=== PATIENT | female | born 1945 | race Caucasian/White ===

== ENCOUNTER 2022-08-28 23:04 | Inpatient (IN) ==
[2022-08-28] MEDS ORDERED: DEXAMETHASONE 10 MG/ML VIAL IV ONE (23:16)
--- NOTE | 2022-08-28 23:18 | Emergency Department Note ---
HPI General Chief complaint: Shortness of Breath/Dyspnea Stated complaint: sob Time Seen by Provider: 08/28/22 23:15 Source: patient Mode of arrival: wheelchair Limitations: physical limitation History of Present Illness HPI Narrative: Narrative: Patient is a 77-year-old female with a complex medical history who presents to the emergency department due to fever, chills, and shortness of breath. Patient states that she was recently diagnosed with COVID. She states that she has begun to develop more significant chills and shortness of breath, so decided to come to the emergency department. She states that she uses a CPAP at night, but does not have oxygen at home. She endorses a history of COPD. She denies any other concerns at this time. Related Data Home Medications Medication Instructions Recorded Confirmed multivitamin 1 tab PO DAILY 06/22/15 08/29/22 fluorouracil 5 % topical cream 1 applic topical BID 04/30/22 08/29/22 Previous Rx's Medication Instructions Recorded CPAP Machine and Supplies #1 ea 10/18/18 rivaroxaban 20 mg tablet (Xarelto) 20 mg PO QDAY #90 tabs 05/04/22 diltiazem HCl 180 mg 180 mg PO QDAY #90 caps 05/14/22 capsule,extended release 24 hr (Cartia XT) losartan 50 mg tablet (Cozaar) 50 mg PO QDAY #90 tabs 06/29/22 pilocarpine HCl 5 mg tablet 5 mg PO TID PRN sjorgens #270 tabs 07/26/22 alendronate 70 mg tablet See Rx Instructions .Route 08/19/22 .COMPLEX #12 tabs dextromethorphan-guaifenesin 10 10 ml PO Q4HP PRN Cough #500 mL 08/31/22 mg-100 mg/5 mL oral liquid (Diabetic Tussin DM) furosemide 40 mg tablet (Lasix) 40 mg PO QDAY #90 tabs 08/31/22 potassium chloride 20 mEq 20 meq PO QDAY #90 tabs 08/31/22 tablet,extended release Allergies Allergy/AdvReac Type Severity Reaction Status Date / Time cephalexin Allergy Unknown Unknown Verified 08/25/22 12:58 doxycycline Allergy Unknown Unknown Verified 08/25/22 12:58 clindamycin AdvReac Mild Itching Verified 08/29/22 08:08 sulfamethoxazole AdvReac Mild Itching Verified 08/29/22 08:08 [From Bactrim] trimethoprim [From Bactrim] AdvReac Mild Itching Verified 08/29/22 08:09 tape Allergy Unknown Unknown Uncoded 08/25/22 12:58 Review of Systems ROS ROS Narrative: Narrative: Constitutional: Reports fever and chills; Denies weakness Eyes: Denies eye pain or vision change ENT ED: Reports rhinorrhea; Denies throat pain or hearing loss Cardiovascular: Denies chest pain, dyspnea on exertion, orthopnea or edema Respiratory: Reports shortness of breath; Denies cough Gastrointestinal: Denies abdominal pain, nausea, vomiting, diarrhea, constipation, hematochezia or melena Musculoskeletal: Denies back pain or myalgia Integumentary: Denies rash or lesions Neurological: Denies headache, weakness, numbness, confusion, abnormal gait or dizziness Psychiatric: Denies anxiety, suicidal thoughts or homicidal thoughts Endocrine: Denies fatigue or polyuria Hematological/Lymphatic: Denies easy bleeding or easy bruising PFSH Narrative Patient History Narrative: Narrative: Medical/Surgical/Family History All Active Problems (Updated 08/29/22 @ 10:03 by Tom Forte MD) AMELIA on CPAP (Acute) Hypoxia (Acute) COVID-19 (Acute) Pneumonia (Acute) COPD (chronic obstructive pulmonary disease) (Chronic) Dysmetabolic syndrome X (Chronic) Hammer toe, acquired (Chronic) Heart disease (Chronic) Hyperlipidemia (Chronic) Hypertension, essential (Chronic) Obesity (Chronic) Obstructive sleep apnea (Chronic) Osteoarthritis (Chronic) Pes planus (Chronic) Sciatica (Chronic) Sleep apnea (Chronic) Hx of colonoscopy (Chronic 12/03/16) Atrial fibrillation (Chronic) Jaw pain (Chronic) Obesities, morbid (Chronic) Atrial fibrillation (Chronic) Foot ulcer, left (Chronic) Nephrolithiasis (Acute) Cyst of spleen (Acute) Shortness of breath (Acute) Morbid obesity due to excess calories (Acute) Abnormal blood test (Acute) Cellulitis of left foot (Acute) Venous stasis (Acute) LUQ abdominal pain (Acute) Headache (Acute) Neck ache (Acute) Left sided chest pain (Acute) Hematuria (Acute) Right facial numbness (Acute) UTI (urinary tract infection) (Acute) Neck pain on right side (Acute) Microscopic hematuria (Acute) Low back pain (Acute) Medicare annual wellness visit, subsequent (Acute) Annual physical exam (Acute) Overactive bladder (Acute) Back muscle spasm (Acute) Xerostomia (Chronic) Abscess (Acute) Elevated antinuclear antibody (SONIDO) level (Acute) Abnormal immunological finding in serum (Chronic) Arthralgia of hand (Acute) Sjogrens syndrome (Chronic) Encounter for long-term (current) use of high-risk medication (Chronic) Tendinitis of both rotator cuffs (Acute) Biceps tendinitis of both upper extremities (Chronic) Left shoulder pain (Chronic) Incontinence (Acute) Angiokeratoma of vulva (Acute) Annual physical exam (Acute) Right sided sciatica (Acute) Laceration of toe (Acute) Medical History Abnormal immunological finding in serum Abscess Allergy to antibiotic 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 Annual physical exam Arthralgia of hand Atrial fibrillation Atrial fibrillation Atypical chest pain Back muscle spasm Biceps tendinitis of both upper extremities Cellulitis of left foot Cervical spondylosis COPD (chronic obstructive pulmonary disease) Cyst of spleen Dysmetabolic syndrome X Elevated antinuclear antibody (SONIDO) level Encounter for long-term (current) use of high-risk medication Foot ulcer, left Hammer toe, acquired 11/15/14-garcia Heart disease 10/28/09-low systolic, low diastolic Hives Hyperlipidemia Hypertension, essential Jaw pain Left shoulder pain Low back pain Medicare annual wellness visit, subsequent Methicillin resistant Staphylococcus epidermidis infection Microscopic hematuria Schedule for CT/KUB along with cystoscopy Neck pain on right side Nephrolithiasis CT KUB Obesities, morbid Obesity morbid Obstructive sleep apnea Osteoarthritis 08/18/04 lower leg Pes planus Pulmonary embolism 01/29/2014 acute multi-segmental, bilateral Right shoulder tendinitis Sciatica Sinusitis Sjogrens syndrome Sleep apnea Tendinitis of both rotator cuffs Thrombophlebitis Upper respiratory infection UTI (urinary tract infection) UTI (urinary tract infection) Xerostomia Surgical History History of 3 sections Hx of colonoscopy (12/03/16) 09/19/2013 tubular adenoma, hyperpalstic polyp S/P knee surgery S/P sclerotherapy of varicose veins S/P shoulder surgery Family History father Essential hypertension mother Essential hypertension Other Kidney stone Social History Smoking Status: Former smoker Alcohol Intake Frequency: does not drink Substance Use: does not use Exam Narrative Narrative: Narrative: General Limitations: physical limitation General appearance: Present alert and in no apparent distress; Absent anxious, appears intoxicated or sleepy Head Head: Present atraumatic and normocephalic Eye Eye: Present EOMI; Absent scleral icterus or nystagmus ENT ENT: Present mucous membranes moist; Absent nasal congestion Neck Neck: Present full ROM; Absent tenderness Chest Chest: Present normal inspection and symmetric chest wall rise Respiratory Respiratory: Present wheezes; Absent respiratory distress, rales/crackles, stridor or accessory muscle use Cardiovascular Cardiovascular: Present regular rate, normal rhythm and normal heart sounds Adbominal Abdominal: Present soft and normal bowel sounds; Absent distention or tenderness Extremities Extremities: Present normal inspection and full ROM Back Back: Present normal inspection and full ROM Neurological Neurological: Present alert and oriented X3 Psychiatric Psychiatric: Present normal affect and normal mood Skin Skin: Present warm (WNL), dry and normal color Course Vital Signs Vital signs: Vital Signs Temperature 100.3 F H 08/28/22 23:08 Pulse Rate 91 H 08/28/22 23:08 Respiratory Rate 28 H 08/28/22 23:08 Blood Pressure 127/110 08/28/22 23:08 Pulse Oximetry (%) 86 L 08/28/22 23:08 Oxygen Delivery Method 08/28/22 23:08 Temperature 97.7 F 08/31/22 15:57 Pulse Rate 61 08/31/22 15:57 Respiratory Rate 22 08/31/22 15:57 Blood Pressure 152/70 08/31/22 15:57 Pulse Oximetry (%) 93 08/31/22 15:57 Oxygen Delivery Method 08/31/22 15:57 Oxygen Flow Rate (L/min) 2 08/31/22 03:36 MDM MDM Narrative Medical decision making narrative: Narrative: Patient is a 77-year-old female with a complex medical history who presents to the emergency department due to fever, chills, and shortness of breath. Given recent diagnosis of Covid there is concern for hypoxia secondary to covid 19. With wheezes and history of COPD there is concern for COPD exacerbation. Bacterial pneumonia is also possible. Patient has received duoneb x 2 with improvement in symptoms. Patient initially had improvement in O2 saturations. Patient then had desaturation with transfer out of/into bed. She then had more sustained hypoxia. There are not any available rooms at this time, but there will be in a couple of hours at 6 am. The hospitalist is being made aware of patient and desired admission. Patient has been signed out to Dr. Oconnell as I was not able to speak to hospitalist by the end of my shift. Lab Data Result diagrams: 08/31/22 05:10 08/31/22 05:10 Labs: Lab Results 08/28/22 08/29/22 08/29/22 Range/Units 23:36 00:45 08:25 WBC 16.4 H (4.5-11.0) K/mcL RBC 4.23 (3.59-5.38) M/mcL Hgb 12.0 (11.2-15.7) g/dL Hct 38.6 (34.1-44.9) % POC Hct 35.0 L (36-48) MCV 91.3 (80.0-100.0) fL MCH 28.4 (26.0-34.0) pg MCHC 31.1 (31.0-36.0) g/dL RDW 14.4 (11.5-14.5) % Plt Count 211 (140-440) K/mcL MPV 9.8 (8.8-12.5) fL Immature Gran % (Auto) 0.8 H (0.0-0.5) % Neut % (Auto) 89.4 H (38.0-78.0) % Lymph % (Auto) 5.8 L (15.5-49.0) % Antelope % (Auto) 2.6 (1.0-12.0) % Eos % (Auto) 1.2 (0.0-7.0) % Baso % (Auto) 0.2 (0.0-2.0) % Lymph # (Auto) 0.95 L (1.50-4.80) K/mcL Antelope # (Auto) 0.43 (0.10-0.90) K/mcL Eos # (Auto) 0.20 (0.00-0.70) K/mcL Baso # (Auto) 0.04 (0.00-0.30) K/mcL Immature Gran # 0.13 H (0.00-0.05) K/mcl Absolute Neutrophils 14.68 H (1.80-8.00) K/mcL POC Sodium 138 (133-145) POC Potassium 4.3 (3.3-5.1) POC Chloride 103 (96-108) POC Total CO2 24.0 (22-30) POC BUN 20 (6-20) POC Creatinine 0.9 (0.6-1.2) POC Glucose 134 H (70-105) POC WB Ioniz Calcium 1.13 L (1.16-1.32) Urine Color Lt. yellow Urine Appearance Clear (Clear) Urine pH 6.0 (5.0-9.0) Ur Specific Amberson 1.015 (1.000-1.035) Urine Protein Negative (Negative) mg/dL Urine Glucose (UA) Negative (Negative) mg/dL Urine Ketones Negative (Negative) mg/dL Urine Occult Blood Trace-intact A (Negative) scott/mcL Urine Nitrate Negative (Negative) Urine Bilirubin Negative (Negative) mg/dL Urine Urobilinogen Normal mg/dL Ur Leukocyte Esterase Negative (Negative) /uL Urine RBC 7 H (0-3) /hpf Urine WBC 1 (0-4) /hpf Ur Squamous Epith Cells 2 (0-4) /hpf Ur Transition Epith Cell < 1 (0-2) /hpf Urine Bacteria Few A (0) /hpf Urine Mucus Few A (None) /hpf Ur Culture Indicated? Yes ED POC Tests ED POC Tests: SILVINO - Influenza A Negative SILVINO - Influenza B Negative SILVINO - SARS Antigen Positive Discharge Plan Patient/Caregiver Discharge Instructions Pt seen by WATERSHED COORDINATOR/PA only: No Clinical Impression: COPD (chronic obstructive pulmonary disease), Hypoxia, COVID-19, Pneumonia Activity: increase activity as tolerated Patient Disposition: Still a Patient Condition: Fair Discharge Date/Time: 08/29/22 10:30
[2022-08-28] MEDS ORDERED: IPRATROPIUM/ALBUTEROL 3 ML AMPUL.NEB NEB ONE (23:43)
[2022-08-29 00:19] LABS: Basophils # (Auto) 0.04 K/mcL (0.00-0.30); Basophils % (Auto) 0.2 % (0.0-2.0); Eosinophils % (Auto) 1.2 % (0.0-7.0); Hematocrit 38.6 % (34.1-44.9); Lymphocytes # (Auto) 0.95 K/mcL (1.50-4.80); Lymphocytes % (Auto) 5.8 % (15.5-49.0); Mean Cell Volume 91.3 fL (80.0-100.0); Mean Corpuscular HGB Conc 31.1 g/dL (31.0-36.0); Mean Platelet Volume 9.8 fL (8.8-12.5); Monocytes # (Auto) 0.43 K/mcL (0.10-0.90); Monocytes % (Auto) 2.6 % (1.0-12.0); Neutrophils % (Auto) 89.4 % (38.0-78.0); Platelet Count 211 K/mcL (140-440); RBC 4.23 M/mcL (3.59-5.38); Red Cell Distribution Width 14.4 % (11.5-14.5); WBC 16.4 K/mcL (4.5-11.0)
[2022-08-29 00:48] LABS: POC Calcium, Ionized 1.13 (1.16-1.32); POC Creatinine 0.9 (0.6-1.2); POC Potassium 4.3 (3.3-5.1)
[2022-08-29] MEDS ORDERED: ACETAMINOPHEN 500 MG TABLET PO ONE (00:48)
[2022-08-29] MEDS ORDERED: predniSONE 20 MG TABLET PO ONE (00:54)
[2022-08-29] MEDS ORDERED: IPRATROPIUM/ALBUTEROL 3 ML AMPUL.NEB NEB ONE (00:54)
[2022-08-29] MEDS ORDERED: BEBTELOVIMAB 175 MG/2 ML VIAL IV ONE (08:03)
--- NOTE | 2022-08-29 08:19 | Emergency Department Note ---
Course Course Course Narrative: Took over care from Dr. Barrett. Patient has exacertion of COPD and Covid positive. She on O2 2 l. She desaturates upon stoppin O2. Patient is awaiting admission, hospitalist to call back Dr. Barrett Note "Patient is a 77-year-old female with a complex medical history who presents to the emergency department due to fever, chills, and shortness of breath. Patient states that she was recently diagnosed with COVID. She states that she has begun to develop more significant chills and shortness of breath, so decided to come to the emergency department. She states that she uses a CPAP at night, but does not have oxygen at home. She endorses a history of COPD. She denies any other concerns at this time" Her WBC high 16.4 with left shift, CXR c/w bilateral infiltrates, no consolidation. UA ordered. Discussed antiviral with patient who agrees. Remdesivir to be given on Floor after admission Case discussed with hospitalist Dr. Forte who will come and see the patient for a dmission. Vital Signs Vital signs: Vital Signs Temperature 100.3 F H 08/28/22 23:08 Pulse Rate 91 H 08/28/22 23:08 Respiratory Rate 28 H 08/28/22 23:08 Blood Pressure 127/110 08/28/22 23:08 Pulse Oximetry (%) 86 L 08/28/22 23:08 Oxygen Delivery Method 08/28/22 23:08 Temperature 98.7 F 08/29/22 02:25 Pulse Rate 80 08/29/22 08:40 Respiratory Rate 16 08/29/22 08:40 Blood Pressure 152/48 08/29/22 08:40 Pulse Oximetry (%) 98 08/29/22 08:40 Oxygen Delivery Method 08/29/22 04:16 Oxygen Flow Rate (L/min) 2 08/29/22 04:16 MDM MDM Narrative Medical decision making narrative: Narrative: Lab Data Result diagrams: 08/28/22 23:36 Labs: Lab Results 08/28/22 08/29/22 Range/Units 23:36 00:45 WBC 16.4 H (4.5-11.0) K/mcL RBC 4.23 (3.59-5.38) M/mcL Hgb 12.0 (11.2-15.7) g/dL Hct 38.6 (34.1-44.9) % POC Hct 35.0 L (36-48) MCV 91.3 (80.0-100.0) fL MCH 28.4 (26.0-34.0) pg MCHC 31.1 (31.0-36.0) g/dL RDW 14.4 (11.5-14.5) % Plt Count 211 (140-440) K/mcL MPV 9.8 (8.8-12.5) fL Immature Gran % (Auto) 0.8 H (0.0-0.5) % Neut % (Auto) 89.4 H (38.0-78.0) % Lymph % (Auto) 5.8 L (15.5-49.0) % Blaine % (Auto) 2.6 (1.0-12.0) % Eos % (Auto) 1.2 (0.0-7.0) % Baso % (Auto) 0.2 (0.0-2.0) % Lymph # (Auto) 0.95 L (1.50-4.80) K/mcL Blaine # (Auto) 0.43 (0.10-0.90) K/mcL Eos # (Auto) 0.20 (0.00-0.70) K/mcL Baso # (Auto) 0.04 (0.00-0.30) K/mcL Immature Gran # 0.13 H (0.00-0.05) K/mcl Absolute Neutrophils 14.68 H (1.80-8.00) K/mcL POC Sodium 138 (133-145) POC Potassium 4.3 (3.3-5.1) POC Chloride 103 (96-108) POC Total CO2 24.0 (22-30) POC BUN 20 (6-20) POC Creatinine 0.9 (0.6-1.2) POC Glucose 134 H (70-105) POC WB Ioniz Calcium 1.13 L (1.16-1.32) ED POC Tests ED POC Tests: SILVINO - Influenza A Negative SILVINO - Influenza B Negative SILVINO - SARS Antigen Positive Discharge Plan Patient/Caregiver Discharge Instructions Pt seen by DRY CLEANING MACHINE OPERATOR/PA only: No Clinical Impression: COPD (chronic obstructive pulmonary disease), Hypoxia, COVID-19, Pneumonia Patient Disposition: Xfer As Inpt ([facility]) Condition: Fair Follow up with: Gopal Michael MD [Primary Care Provider] - Prescriptions: No Action furosemide [Lasix] 40 mg tablet 40 mg PO QDAY Qty: 90 1RF potassium chloride 20 mEq tablet extended release 20 meq PO QDAY Qty: 90 1RF Xarelto 20 mg tablet 20 mg PO QDAY Qty: 90 1RF Rx Instructions: must administer with evening meal diltiazem HCl [Cartia XT] 180 mg capsule,extended release 24hr 180 mg PO QDAY Qty: 90 1RF losartan [Cozaar] 50 mg tablet 50 mg PO QDAY Qty: 90 1RF pilocarpine HCl 5 mg tablet 5 mg PO TID PRN (Reason: sjorgens) Qty: 270 0RF alendronate 70 mg tablet See Rx Instructions .ROUTE .COMPLEX Qty: 12 0RF Dose Instruction: TAKE 1 TABLET BY MOUTH EVERY WEEK Rx Instructions: TAKE 1 TABLET BY MOUTH EVERY WEEK (DME) CPAP Machine and Supplies Qty: 1 0RF Dose Instruction: As directed Rx Instructions: As directed fluorouracil 5 % cream 1 applic topical BID Rx Instructions: Per Dr. Arreola, starting in July 2022 multivitamin 1 EACH tablet 1 tab PO DAILY
--- NOTE | 2022-08-29 08:36 | XRay Report ---
HISTORY: Shortness breath, hypoxia, Covid FINDINGS: Portable semierect AP image was obtained. There is a haziness in the lower thorax bilaterally. This is predominantly due to superimposed fat from abdominal wall fat. Underlying mild pneumonia in the lung bases cannot be excluded. The mid and upper lung pérez are clear. The heart size is normal. No pleural effusion is present. IMPRESSION: Suboptimal exam with possible mild pneumonia in the lung bases Interpreted and Authenticated by: Lorenzo Petersen 08/29/22
[2022-08-29 09:23] LABS: Appearance,Urine CLEAR (Clear); Bacteria,Urine FEW /hpf (0); Bilirubin,Urine NEGATIVE (Negative); Color,Urine LT. YELLOW; Culture Indicated,Urine Yes; Glucose,Urine (UA) NEGATIVE (Negative); Ketones,Urine NEGATIVE (Negative); Leukocyte Esterase,Urine NEGATIVE /uL (Negative); Mucus,Urine FEW /hpf; Nitrate,Urine NEGATIVE (Negative); Protein,Urine NEGATIVE (Negative); Specific Gravity,Urine 1.015 (1.000-1.035); Urine Blood TRACE-INTACT ery/mcL (Negative); Urine RBC 7 /hpf (0-3); Urine Squamous Epithelial Cell 2 /hpf (0-4); Urine Transitional Epi Cells < 1 /hpf (0-2); Urine WBC 1 /hpf (0-4); Urobilinogen,Urine Normal
--- NOTE | 2022-08-29 10:06 | Internal Med History&Physical ---
HPI History of Present Illness Patient information: Note initiated : 08/29/22 at 9:49 am Service Date, if different from initiated Date: [] Patient: Miriam Yanez 77 y/o F admitted on for sob. Chief Complaint: [shortness of breath] Chief complaint: shortness of breath History of present illness: Ms. Yanez is a 77 year old F history of sleep apnea on CPAP, obesity, essential hypertensions, atrial fibrillation's on Xarelto, Sjogren's syndrome, presenting with 1 week history of shortness of breath, productive cough, wheezing, and shaking chills. She denies any recent travel or sick contact. She has been vaccinated against COVID-pneumonia x3. Over the past week, she is experiencing shortness of breath, productive cough, wheezing, and shaking chills. She was tested positive for COVID-pneumonia 4 days ago. She presented to our ED last night due to worsening of her symptoms. Vital signs significant for oxygen desaturating to the high 80s on room air. Labs significant for leukocytosis with WBC 16.4. Chest x-ray showing bilateral lung base infiltrate suggestive of pneumonia. Admission request was called for COVID-pneumonia cannot rule out superimposing bacterial pneumonia. Constitutional Constitutional: Present chills; Absent excessive sweating, fatigue, fever(s) or weakness EENT Eyes: Absent blurry vision, change in vision, loss of vision or other visual disturbances Ears: Absent decreased hearing or tinnitus Nose, mouth and throat: Absent abnormal hearing, dry mouth, headache(s), nasal congestion or sore throat Cardiovascular Cardiovascular: Absent chest pain, chest pain at rest, edema, irregular heart rhythm or palpatations Respiratory Respiratory: Present cough, dyspnea, wheezing and excessive phlegm production Gastrointestinal Gastrointestinal: Absent abdominal pain, constipation, diarrhea, nausea or vomiting Musculoskeletal Musculoskeletal: Absent back pain, deformity, limited range of motion, muscle cramps, muscle weakness or numbness Integumentary Integumentary: Absent lesions, rash or wounds Neurological Neurological: Absent focal weakness, headache(s) or numbness Psychiatric Psychiatric: Absent anxiety, depression or hallucinations PFSH PFSH All Active Problems (Updated 08/29/22 @ 10:03 by Tom Forte MD) AMELIA on CPAP (Acute) Hypoxia (Acute) COVID-19 (Acute) Pneumonia (Acute) COPD (chronic obstructive pulmonary disease) (Chronic) Dysmetabolic syndrome X (Chronic) Hammer toe, acquired (Chronic) Heart disease (Chronic) Hyperlipidemia (Chronic) Hypertension, essential (Chronic) Obesity (Chronic) Obstructive sleep apnea (Chronic) Osteoarthritis (Chronic) Pes planus (Chronic) Sciatica (Chronic) Sleep apnea (Chronic) Hx of colonoscopy (Chronic 12/03/16) Atrial fibrillation (Chronic) Jaw pain (Chronic) Obesities, morbid (Chronic) Atrial fibrillation (Chronic) Foot ulcer, left (Chronic) Nephrolithiasis (Acute) Cyst of spleen (Acute) Shortness of breath (Acute) Morbid obesity due to excess calories (Acute) Abnormal blood test (Acute) Cellulitis of left foot (Acute) Venous stasis (Acute) LUQ abdominal pain (Acute) Headache (Acute) Neck ache (Acute) Left sided chest pain (Acute) Hematuria (Acute) Right facial numbness (Acute) UTI (urinary tract infection) (Acute) Neck pain on right side (Acute) Microscopic hematuria (Acute) Low back pain (Acute) Medicare annual wellness visit, subsequent (Acute) Annual physical exam (Acute) Overactive bladder (Acute) Back muscle spasm (Acute) Xerostomia (Chronic) Abscess (Acute) Elevated antinuclear antibody (SONIDO) level (Acute) Abnormal immunological finding in serum (Chronic) Arthralgia of hand (Acute) Sjogrens syndrome (Chronic) Encounter for long-term (current) use of high-risk medication (Chronic) Tendinitis of both rotator cuffs (Acute) Biceps tendinitis of both upper extremities (Chronic) Left shoulder pain (Chronic) Incontinence (Acute) Angiokeratoma of vulva (Acute) Annual physical exam (Acute) Right sided sciatica (Acute) Laceration of toe (Acute) Medical History Abnormal immunological finding in serum Abscess Allergy to antibiotic 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 Annual physical exam Arthralgia of hand Atrial fibrillation Atrial fibrillation Atypical chest pain Back muscle spasm Biceps tendinitis of both upper extremities Cellulitis of left foot Cervical spondylosis COPD (chronic obstructive pulmonary disease) Cyst of spleen Dysmetabolic syndrome X Elevated antinuclear antibody (SONIDO) level Encounter for long-term (current) use of high-risk medication Foot ulcer, left Hammer toe, acquired 11/15/14-garcia Heart disease 10/28/09-low systolic, low diastolic Hives Hyperlipidemia Hypertension, essential Jaw pain Left shoulder pain Low back pain Medicare annual wellness visit, subsequent Methicillin resistant Staphylococcus epidermidis infection Microscopic hematuria Schedule for CT/KUB along with cystoscopy Neck pain on right side Nephrolithiasis CT KUB Obesities, morbid Obesity morbid Obstructive sleep apnea Osteoarthritis 08/18/04 lower leg Pes planus Pulmonary embolism 01/29/2014 acute multi-segmental, bilateral Right shoulder tendinitis Sciatica Sinusitis Sjogrens syndrome Sleep apnea Tendinitis of both rotator cuffs Thrombophlebitis Upper respiratory infection UTI (urinary tract infection) UTI (urinary tract infection) Xerostomia Surgical History History of 3 sections Hx of colonoscopy (12/03/16) 09/19/2013 tubular adenoma, hyperpalstic polyp S/P knee surgery S/P sclerotherapy of varicose veins S/P shoulder surgery Family History father Essential hypertension mother Essential hypertension Other Kidney stone Social History household members: alone lives independently: Yes marital status: occupational status: retired occupation: [employer] smoking status: Former smoker smoking status stop date: 10/03/05 alcohol intake frequency: does not drink substance use type: does not use MEDS/ALLERGIES Home Medications and Allergies Home Medications Medication Instructions Recorded Confirmed Type multivitamin 1 tab PO DAILY 06/22/15 08/29/22 History CPAP Machine and Supplies #1 ea 10/18/18 08/25/22 Rx furosemide 40 mg tablet (Lasix) 40 mg PO QDAY #90 tabs 03/04/22 08/29/22 Rx potassium chloride 20 mEq 20 meq PO QDAY #90 tabs 03/04/22 08/29/22 Rx tablet,extended release fluorouracil 5 % topical cream 1 applic topical BID 04/30/22 08/29/22 History rivaroxaban 20 mg tablet (Xarelto) 20 mg PO QDAY #90 tabs 05/04/22 08/29/22 Rx diltiazem HCl 180 mg 180 mg PO QDAY #90 caps 05/14/22 08/29/22 Rx capsule,extended release 24 hr (Cartia XT) losartan 50 mg tablet (Cozaar) 50 mg PO QDAY #90 tabs 06/29/22 08/29/22 Rx pilocarpine HCl 5 mg tablet 5 mg PO TID PRN sjorgens #270 tabs 07/26/22 08/29/22 Rx alendronate 70 mg tablet See Rx Instructions .Route 08/19/22 08/29/22 Rx .COMPLEX #12 tabs Allergies Allergy/AdvReac Type Severity Reaction Status Date / Time cephalexin Allergy Unknown Unknown Verified 08/25/22 12:58 doxycycline Allergy Unknown Unknown Verified 08/25/22 12:58 clindamycin AdvReac Mild Itching Verified 08/29/22 08:08 sulfamethoxazole AdvReac Mild Itching Verified 08/29/22 08:08 [From Bactrim] trimethoprim [From Bactrim] AdvReac Mild Itching Verified 08/29/22 08:09 tape Allergy Unknown Unknown Uncoded 08/25/22 12:58 EXAM Constitutional Vitals: Temp Pulse Resp BP Pulse Ox O2 Del Method O2 Flow Rate 37.1 C 74 17 129/53 96 2 08/29/22 02:25 08/29/22 09:17 08/29/22 09:17 08/29/22 09:17 08/29/22 09:17 08/29/22 04:16 08/29/22 04:16 General appearance: cooperative, morbidly obese and no acute distress Head Head exam: Present atraumatic and normocephalic Eye Eye exam: Present EOMI and PERRL ENT ENT exam: Present mucous membranes moist, normal exam and normal external ear exam Additional comments: Nasal cannula in place Neck Neck exam: Present normal inspection; Absent lymphadenopathy, tenderness or thyromegaly Respiratory Respiratory exam: Present rhonchi; Absent accessory muscle use, respiratory distress or wheezes Cardiovascular Cardiovascular exam: Present irregular rhythm; Absent JVD GI/Abdominal GI/Abdominal exam: Present normal bowel sounds and soft; Absent organomegaly or tenderness Extremities Exam Extremities exam: Present full ROM, normal capillary refill and normal inspection; Absent tenderness Neurological Exam Neurological exam: Present alert, CN II-XII intact and oriented X3; Absent motor sensory deficit Psychiatric Psychiatric exam: Present normal affect and normal mood; Absent anxious or depressed Skin Skin exam: Present dry and intact DATA Data Completed and Pending Labs: Labs from last 24 hours 08/29/22 08/29/22 08/28/22 08:25 00:45 23:36 WBC 16.4 H RBC 4.23 Hgb 12.0 Hct 38.6 POC Hct 35.0 L MCV 91.3 MCH 28.4 MCHC 31.1 RDW 14.4 Plt Count 211 MPV 9.8 Immature Gran % (Auto) 0.8 H Neut % (Auto) 89.4 H Lymph % (Auto) 5.8 L Ida % (Auto) 2.6 Eos % (Auto) 1.2 Baso % (Auto) 0.2 Lymph # (Auto) 0.95 L Ida # (Auto) 0.43 Eos # (Auto) 0.20 Baso # (Auto) 0.04 Immature Gran # 0.13 H Absolute Neutrophils 14.68 H POC Sodium 138 POC Potassium 4.3 POC Chloride 103 POC Total CO2 24.0 POC BUN 20 POC Creatinine 0.9 POC Glucose 134 H POC WB Ioniz Calcium 1.13 L Urine Color Lt. yellow Urine Appearance Clear Urine pH 6.0 Ur Specific Oscar 1.015 Urine Protein Negative Urine Glucose (UA) Negative Urine Ketones Negative Urine Occult Blood Trace-intact A Urine Nitrate Negative Urine Bilirubin Negative Urine Urobilinogen Normal Ur Leukocyte Esterase Negative Urine RBC 7 H Urine WBC 1 Ur Squamous Epith Cells 2 Ur Transition Epith Cell < 1 Urine Bacteria Few A Urine Mucus Few A Ur Culture Indicated? Yes A/P Assessment and plan (1) COVID-19: Status: Acute (2) Pneumonia: Status: Acute (3) Hypertension, essential: Status: Chronic (4) Obesity: Status: Chronic Comment: morbid Qualifiers: Obesity type: due to excess calories Obesity classification: adult class 3 (BMI >= 40) Serious obesity comorbidity presence: with serious comorbidity Body mass index: BMI 50.0-59.9 Qualified Code(s): E66.01 - Morbid (severe) obesity due to excess calories (5) Atrial fibrillation: Status: Chronic Qualifiers: Atrial fibrillation type: paroxysmal Qualified Code(s): I48.0 - Paroxysmal atrial fibrillation (6) Sjogrens syndrome: Status: Chronic (7) AMELIA on CPAP: Status: Acute Narrative A/P Narrative: Assessment and Plans: 1. CoVID pneumonia: Inpatient med surg with telemetry Isolation: airborne and contact Supplemental oxygen therapy Dexamethasone Remdesivir DuoNEB NEB PRN wheezing Tylenol PRN fever Robitussin DM PRN cough Physical therapy 2. Superimposed community acquired pneumonia: Serial lactic acid Blood culture X2 cbc w/ auto diff in the morning to trend WBC Rocephin Zithromax 3. Obstructive sleep apnea on CPAP: Continue CPAP at night while sleeping 4. Atrial fibrillation: Telemetry Xarelto Diltiazem 5. Essential hypertension: Diltiazem Lasix Losartan 6. 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 Sjgren's syndrome: Pilocarpine PRN dry mouth GI ppx: not currently indicated DVT ppx: Xarelto Code status: Full Prognosis: guarded Disposition: inpatient med surg telemetry; PT Time Spent With Patient Time: Total time spent is greater than 50% in coordination of care (as documented) at patient's floor/unit and/or counseling patient: Total time spent with greater than 50% in coordination of care (as documented) at patient's floor/unit and/or counseling patient:: 50 - 70 minutes
[2022-08-29] MEDS ORDERED: ONDANSETRON 4 MG/2 ML VIAL IV PRN (10:47)
[2022-08-29] MEDS ORDERED: guaiFENesin/DEXTROMETHORPHAN ORAL SOL PO PRN (10:47)
[2022-08-29] MEDS ORDERED: traZODone HCL 50 MG TABLET PO PRN (10:47)
[2022-08-29] MEDS ORDERED: IPRATROPIUM/ALBUTEROL 3 ML AMPUL.NEB NEB PRN (10:47)
[2022-08-29] MEDS ORDERED: cefTRIAXone 1 GM in DEXTROSE 5% IN WATER 50 ML IV SCH (10:47)
[2022-08-29] MEDS ORDERED: ACETAMINOPHEN 325 MG TABLET PO PRN (10:47)
[2022-08-29] MEDS ORDERED: Pilocarpine Hcl 5 mg tablet PO PRN (10:49)
[2022-08-29] MEDS ORDERED: REMDESIVIR 200 MG in 0.9 % SODIUM CHLORIDE 250 ML IV ONE (11:00)
[2022-08-29] MEDS: DEXAMETHASONE 4 MG TABLET PO SCH (11:25)
[2022-08-29] MEDS: cefTRIAXone 1 GM VIAL IV SCH (12:05)
[2022-08-29] MEDS: AZITHROMYCIN 500 MG in DEXTROSE 5% IN WATER 250 ML IV SCH (12:51)
[2022-08-29] MEDS: 0.9 % SODIUM CHLORIDE 10 ML SYRINGE IV SCH ×2 (13:00→20:39)
[2022-08-29] MEDS: DOCUSATE SODIUM 100 MG CAPSULE PO SCH (20:39)
[2022-08-29] MEDS: SENNOSIDES 1 TABLET PO SCH (20:40)
[2022-08-29] MEDS: FLUOROURACIL 5% TOPICAL SCH (20:40)
[2022-08-30] MEDS: 0.9 % SODIUM CHLORIDE 10 ML SYRINGE IV SCH ×3 (05:32→20:29)
[2022-08-30 07:05] LABS: Basophils # (Auto) 0.08 K/mcL (0.00-0.30); Basophils % (Auto) 0.3 % (0.0-2.0); Eosinophils # (Auto) 0 K/mcL (0.00-0.70); Eosinophils % (Auto) 0 % (0.0-7.0); Hematocrit 35.4 % (34.1-44.9); Hemoglobin 11.2 g/dL (11.2-15.7); Lymphocytes # (Auto) 0.87 K/mcL (1.50-4.80); Lymphocytes % (Auto) 3.6 % (15.5-49.0); Mean Cell Volume 90.5 fL (80.0-100.0); Mean Corpuscular HGB Conc 31.6 g/dL (31.0-36.0); Mean Platelet Volume 10.1 fL (8.8-12.5); Monocytes # (Auto) 0.78 K/mcL (0.10-0.90); Monocytes % (Auto) 3.2 % (1.0-12.0); Neutrophils % (Auto) 91.8 % (38.0-78.0); Platelet Count 178 K/mcL (140-440); RBC 3.91 M/mcL (3.59-5.38); Red Cell Distribution Width 14.3 % (11.5-14.5); WBC 24.3 K/mcL (4.5-11.0)
[2022-08-30 07:22] LABS: ALT/SGPT 24 U/L (<40); AST/SGOT 31 U/L (<32); Albumin 3.1 gm/dL (3.2-5.2); Albumin/Globulin Ratio 0.9 (1.0-2.3); Alkaline Phosphatase 81 U/L (39-117); Bilirubin,Total 0.2 mg/dL (0.1-1.0); Blood Urea Nitrogen 17 mg/dL (8-23); Calcium 8.6 mg/dL (8.6-10.4); Carbon Dioxide 27 mmol/L (22-30); Chloride 105 mmol/L (96-108); Globulin 3.3 gm/dL (2.2-3.7); Glomerular Filtration Rate 87; Glucose 126 mg/dL (70-105)
[2022-08-30] MEDS ORDERED: ALENDRONATE SODIUM 70 MG TABLET PO SCH (07:30)
[2022-08-30] MEDS: RIVAROXABAN 20 MG TABLET PO SCH (09:26)
[2022-08-30] MEDS: FUROSEMIDE 40 MG TABLET PO SCH (09:26)
[2022-08-30] MEDS: DEXAMETHASONE 4 MG TABLET PO SCH (09:26)
[2022-08-30] MEDS: DOCUSATE SODIUM 100 MG CAPSULE PO SCH ×2 (09:26→20:28)
[2022-08-30] MEDS: MULTIVIT,THER IRON,CA,FA & MIN 1 TABLET PO SCH (09:26)
[2022-08-30] MEDS: cefTRIAXone 1 GM VIAL IV SCH (09:27)
[2022-08-30] MEDS: AZITHROMYCIN 500 MG in DEXTROSE 5% IN WATER 250 ML IV SCH (09:27)
[2022-08-30] MEDS: POTASSIUM CHLORIDE 20 MEQ TABLET PO SCH (09:27)
[2022-08-30] MEDS: LOSARTAN 50 MG TABLET PO SCH (09:27)
[2022-08-30] MEDS: DILTIAZEM 180 MG CAP.XL.24H PO SCH (09:38)
--- NOTE | 2022-08-30 12:03 | Internal Med Progress Note ---
SUBJECTIVE Subjective Patient information: Note initiated : 08/30/22 at 12:00 pm Service Date, if different from initiated Date: [] Patient: Miriam Yanez 77 y/o F admitted on 08/29/22 for sob. Chief Complaint: [] Interval history: Ms. Yanez is a 77 year old F history of sleep apnea on CPAP, obesity, essential hypertensions, atrial fibrillation's on Xarelto, Sjogren's syndrome, presenting with 1 week history of shortness of breath, productive cough, wheezing, and shaking chills. She denies any recent travel or sick contact. She has been vaccinated against COVID-pneumonia x3. Over the past week, she is experiencing shortness of breath, productive cough, wheezing, and shaking chills. She was tested positive for COVID-pneumonia 4 days ago. She presented to our ED last night due to worsening of her symptoms. Vital signs significant for oxygen desaturating to the high 80s on room air. Labs significant for leukocytosis with WBC 16.4. Chest x-ray showing bilateral lung base infiltrate suggestive of pneumonia. Admission request was called for COVID-pneumonia cannot rule out superimposing bacterial pneumonia. 08/30: Afebrile overnight. Blood and urine culture no growth today. Patient is currently on 2 L/min of supplemental oxygen via nasal cannula. She feels like her degree of shortness of breath has improved. She is still complaining of productive cough with yellow sputum. She denies any wheezing. She denies any chest pain chest pressure or chest tightness. She is having fever but denies any shaking chills or diaphoresis. Continue Remdesivir and dexamethasone for COVID-pneumonia. Continue Rocephin an d azithromycin for coverage of superimposing bacterial pneumonia. Continue supplemental oxygen therapy. Physical therapy evaluation and treatment for placement planning. Constitutional Vitals: Vital Signs Temp Pulse Resp BP Pulse Ox O2 Del Method O2 Flow Rate 36.4 C 72 18 154/73 97 2 08/30/22 03:59 08/30/22 07:59 08/30/22 07:59 08/30/22 07:59 08/30/22 07:59 08/30/22 07:59 08/30/22 07:59 Period Temp Pulse Resp BP Sys/Bowen Pulse Ox O2 Del Method O2 Flow Rate Last 24 Hr 36.4 C-36.7 C 72-88 - 96-154/57-73 92-97 Nasal Cannula-Na emiliana Cannula 2-3 Intake and Output 08/30/22 08/30/22 08/30/22 03:59 11:59 19:59 Intake Total 720 Output Total 350 400 Balance -350 320 Intake & Output: Intake & Output 08/30/22 08/30/22 08/30/22 03:59 11:59 19:59 Intake Total 720 Output Total 350 400 Balance -350 320 Intake: Oral 720 Output: Void Amount 350 400 Other: Meal Breakfast Percent of Meal Consumed 100% Feeding Ability Independent Urine Appearance Clear Clear Urine Color Yellow Yellow Stool Size Moderate Small Stool Color Brown Brown Stool Consistency Soft Soft # Voids 1 General appearance: cooperative, morbidly obese and no acute distress Head Head exam: Present atraumatic and normal inspection Eye Eye exam: Present normal appearance ENT ENT exam: Present mucous membranes moist, normal exam and normal external ear exam Additional comments: Nasal cannula in place Neck Neck exam: Present normal inspection Respiratory Respiratory exam: Present normal respiratory exam Cardiovascular Cardiovascular exam: Present irregular rhythm GI/Abdominal GI/Abdominal exam: Present normal bowel sounds Back Exam Back exam: Present normal inspection Neurological Exam Neurological exam: Present alert and oriented X3 Skin Skin exam: Present intact and warm OBJ DATA Labs CBC & Chem 7: 08/30/22 06:13 08/30/22 06:13 Labs: Abnormal Lab Results 08/30/22 08/30/22 08/29/22 06:13 06:13 08:25 WBC 24.3 H POC Hct Immature Gran % (Auto) 1.1 H Neut % (Auto) 91.8 H Lymph % (Auto) 3.6 L Lymph # (Auto) 0.87 L Immature Gran # 0.27 H Absolute Neutrophils 22.25 H Anion Gap 7.0 L Glucose 126 H POC Glucose POC WB Ioniz Calcium Albumin 3.1 L Albumin/Globulin Ratio 0.9 L Urine Occult Blood Trace-intact A Urine RBC 7 H Urine Bacteria Few A Urine Mucus Few A 08/29/22 08/28/22 00:45 23:36 WBC 16.4 H POC Hct 35.0 L Immature Gran % (Auto) 0.8 H Neut % (Auto) 89.4 H Lymph % (Auto) 5.8 L Lymph # (Auto) 0.95 L Immature Gran # 0.13 H Absolute Neutrophils 14.68 H Anion Gap Glucose POC Glucose 134 H POC WB Ioniz Calcium 1.13 L Albumin Albumin/Globulin Ratio Urine Occult Blood Urine RBC Urine Bacteria Urine Mucus Meds: Medications Acetaminophen (Acetaminophen 325 Mg Tablet) 650 mg PO Q6HP PRN; Protocol PRN Reason: Per Pain Protocol/Fever > 101 Albuterol/Ipratropium (Ipratropium/Albuterol 3 Ml Ampul.Neb) 3 ml NEB Q4HRT PRN PRN Reason: Wheezing Alendronate Sodium (Alendronate Sodium 70 Mg Tablet) 70 mg PO Mo@0730 [facility] Last Admin: 08/30/22 07:56 Dose: 70 mg Ceftriaxone Sodium (Ceftriaxone 1 Gm Vial) 1 gm IV Q24H [facility] Last Admin: 08/30/22 09:27 Dose: 1 gm Dexamethasone (Dexamethasone 4 Mg Tablet) 6 mg PO DAILY [facility] Last Admin: 08/30/22 09:26 Dose: 6 mg Diltiazem HCl (Diltiazem 180 Mg Cap.Xl.24h) 180 mg PO QDAY [facility] Last Admin: 08/30/22 09:38 Dose: 180 mg Docusate Sodium (Docusate Sodium 100 Mg Capsule) 100 mg PO BID [facility] Last Admin: 08/30/22 09:26 Dose: 100 mg Furosemide (Furosemide 40 Mg Tablet) 40 mg PO QDAY [facility] Last Admin: 08/30/22 09:26 Dose: 40 mg Guaifenesin (Guaifenesin/Dextromethorphan Oral Sweeite) 10 ml PO Q4HP PRN PRN Reason: Cough Azithromycin 500 mg/ Dextrose 250 mls @ 250 mls/hr IV Q24H [facility]; Protocol Stop: 08/31/22 12:59 Last Admin: 08/30/22 09:27 Dose: 250 mls/hr REMDESIVIR 100 mg/ Sodium (Chloride) 250 mls @ 500 mls/hr IV Q24H [facility] Stop: 09/02/22 10:29 Iron Carb/Multivit/[place]/Folic Acid (Multivit,Ther Iron,Ca,Fa & Min 1 Tablet) 1 tab PO DAILY [facility] Last Admin: 08/30/22 09:26 Dose: 1 tab Losartan Potassium (Losartan 50 Mg Tablet) 50 mg PO QDAY [facility] Last Admin: 08/30/22 09:27 Dose: 50 mg Ondansetron HCl (Ondansetron 4 Mg/2 Ml Vial) 4 mg IV Q6HP PRN PRN Reason: Nausea And Vomiting Fluorouracil 5 % (Cream) 1 dose TOPICAL BID [facility] Last Admin: 08/29/22 20:40 Dose: Not Given Pilocarpine Hcl 5 Mg (Tablet) 1 dose PO TIDP PRN PRN Reason: sjorgens Potassium Chloride (Potassium Chloride 20 Meq Tablet) 20 meq PO QAMCC [facility] Last Admin: 08/30/22 09:27 Dose: 20 meq Rivaroxaban (Rivaroxaban 20 Mg Tablet) 20 mg PO QDAY [facility] Last Admin: 08/30/22 09:26 Dose: 20 mg Senna (Sennosides 1 Tablet) 2 tab PO HS [facility] Last Admin: 08/29/22 20:40 Dose: Not Given Sodium Chloride (0.9 % Sodium Chloride 10 Ml Syringe) 10 ml IV Q8 [facility] Last Admin: 08/30/22 05:32 Dose: Not Given Trazodone HCl (Trazodone Hcl 50 Mg Tablet) 25 mg PO HSP PRN PRN Reason: Insomnia A/P Assessment and plan (1) COVID-19: Status: Acute (2) Pneumonia: Status: Acute (3) Hypertension, essential: Status: Chronic (4) Obesity: Status: Chronic Comment: morbid Qualifiers: Obesity type: due to excess calories Obesity classification: adult class 3 (BMI >= 40) Serious obesity comorbidity presence: with serious comorbidity Body mass index: BMI 50.0-59.9 Qualified Code(s): E66.01 - Morbid (severe) obesity due to excess calories (5) Atrial fibrillation: Status: Chronic Qualifiers: Atrial fibrillation type: paroxysmal Qualified Code(s): I48.0 - Paroxysmal atrial fibrillation (6) Sjogrens syndrome: Status: Chronic (7) AMELIA on CPAP: Status: Acute Narrative A/P Narrative: Assessment and Plans: 1. CoVID pneumonia: Inpatient med surg with telemetry Isolation: airborne and contact Supplemental oxygen therapy Dexamethasone Remdesivir DuoNEB NEB PRN wheezing Tylenol PRN fever Robitussin DM PRN cough Physical therapy evaluation and treatment 2. Superimposed community acquired pneumonia: Serial lactic acid 1.8 Blood culture X2, no growth to date cbc w/ auto diff in the morning to trend WBC Rocephin Zithromax 3. Obstructive sleep apnea on CPAP: Continue CPAP at night while sleeping 4. Atrial fibrillation: Telemetry Xarelto Diltiazem 5. Essential hypertension: Diltiazem Lasix Losartan 6. 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 Sjgren's syndrome: Pilocarpine PRN dry mouth GI ppx: not currently indicated DVT ppx: Xarelto Code status: Full Prognosis: guarded Disposition: inpatient med surg telemetry; PT Time Spent With Patient Time: Total time spent is greater than 50% in coordination of care (as documented) at patient's floor/unit and/or counseling patient: Total time spent with greater than 50% in coordination of care (as documented) at patient's floor/unit and/or counseling patient:: 25 - 35 minutes QUALITY VTE Deep Vein Thrombosis/Pulmonary Embolism Present on Admission: No
[2022-08-30] MEDS: REMDESIVIR 100 MG in 0.9 % SODIUM CHLORIDE 250 ML IV SCH (12:52)
[2022-08-30] MEDS: FLUOROURACIL 5% TOPICAL SCH ×2 (12:53→20:35)
[2022-08-30] MEDS: SENNOSIDES 1 TABLET PO SCH (20:28)
[2022-08-31] MEDS: 0.9 % SODIUM CHLORIDE 10 ML SYRINGE IV SCH (06:11)
[2022-08-31 07:37] LABS: Basophils # (Auto) 0.04 K/mcL (0.00-0.30); Basophils % (Auto) 0.2 % (0.0-2.0); Eosinophils # (Auto) 0 K/mcL (0.00-0.70); Eosinophils % (Auto) 0 % (0.0-7.0); Hematocrit 37.8 % (34.1-44.9); Hemoglobin 11.9 g/dL (11.2-15.7); Lymphocytes # (Auto) 1.26 K/mcL (1.50-4.80); Lymphocytes % (Auto) 5.7 % (15.5-49.0); Mean Cell Volume 89.6 fL (80.0-100.0); Mean Corpuscular HGB Conc 31.5 g/dL (31.0-36.0); Mean Platelet Volume 10.4 fL (8.8-12.5); Monocytes # (Auto) 0.73 K/mcL (0.10-0.90); Monocytes % (Auto) 3.3 % (1.0-12.0); Neutrophils % (Auto) 89.8 % (38.0-78.0); Platelet Count 219 K/mcL (140-440); RBC 4.22 M/mcL (3.59-5.38); Red Cell Distribution Width 14.2 % (11.5-14.5); WBC 22.1 K/mcL (4.5-11.0)
[2022-08-31 07:54] LABS: ALT/SGPT 30 U/L (<40); AST/SGOT 29 U/L (<32); Albumin 3.3 gm/dL (3.2-5.2); Albumin/Globulin Ratio 0.9 (1.0-2.3); Alkaline Phosphatase 115 U/L (39-117); Bilirubin,Total 0.2 mg/dL (0.1-1.0); Blood Urea Nitrogen 19 mg/dL (8-23); Calcium 8.6 mg/dL (8.6-10.4); Carbon Dioxide 27 mmol/L (22-30); Chloride 102 mmol/L (96-108); Globulin 3.5 gm/dL (2.2-3.7); Glomerular Filtration Rate 83; Glucose 121 mg/dL (70-105)
[2022-08-31] MEDS: cefTRIAXone 1 GM VIAL IV SCH (09:14)
[2022-08-31] MEDS: AZITHROMYCIN 500 MG in DEXTROSE 5% IN WATER 250 ML IV SCH (09:14)
[2022-08-31] MEDS: DEXAMETHASONE 4 MG TABLET PO SCH (09:15)
[2022-08-31] MEDS: POTASSIUM CHLORIDE 20 MEQ TABLET PO SCH (09:15)
[2022-08-31] MEDS: MULTIVIT,THER IRON,CA,FA & MIN 1 TABLET PO SCH (09:15)
[2022-08-31] MEDS: DILTIAZEM 180 MG CAP.XL.24H PO SCH (09:15)
[2022-08-31] MEDS: LOSARTAN 50 MG TABLET PO SCH (09:16)
[2022-08-31] MEDS: FUROSEMIDE 40 MG TABLET PO SCH (09:16)
[2022-08-31] MEDS: DOCUSATE SODIUM 100 MG CAPSULE PO SCH (09:19)
--- NOTE | 2022-08-31 10:20 | Discharge Summary ---
Discharge Provider Provider IMPORTANT FOLLOW-UP INFORMATION FOR PCP: Patient information: Note initiated : 08/31/22 at 10:18 am Service Date, if different from initiated Date: [] Patient: Miriam Yanez 77 y/o F admitted on 08/29/22 for sob. Chief Complaint: [] Date of admission: 08/29/22 10:30 Discharge date: 08/31/22 Primary care physician: Gopal Michael MD Attending physician on admission: Tom Forte Consults: 08/29/22 Consult to Physician [CONS] Stat Comment: Consulting Provider: Tom Forte Reason For Exam: Physician to Consult Attending physician on discharge: Tom Forte COURSE Hospital Course Hospital course: Ms. Yanez is a 77 year old F history of sleep apnea on CPAP, obesity, essential hypertensions, atrial fibrillation's on Xarelto, Sjogren's syndrome, presenting with 1 week history of shortness of breath, productive cough, wheezing, and shaking chills. She denies any recent travel or sick contact. She has been vaccinated against COVID-pneumonia x3. Over the past week, she is experiencing shortness of breath, productive cough, wheezing, and shaking chills. She was tested positive for COVID-pneumonia 4 days ago. She presented to our ED last night due to worsening of her symptoms. Vital signs significant for oxygen desaturating to the high 80s on room air. Labs significant for l eukocytosis with WBC 16.4. Chest x-ray showing bilateral lung base infiltrate suggestive of pneumonia. Admission request was called for COVID-pneumonia cannot rule out superimposing bacterial pneumonia. 08/30: Afebrile overnight. Blood and urine culture no growth today. Patient is currently on 2 L/min of supplemental oxygen via nasal cannula. She feels like her degree of shortness of breath has improved. She is still complaining of productive cough with yellow sputum. She denies any wheezing. She denies any chest pain chest pressure or chest tightness. She is having fever but denies any shaking chills or diaphoresis. Continue Remdesivir and dexamethasone for COVID-pneumonia. Continue Rocephin and azithromycin for coverage of superimposing bacterial pneumonia. Continue supplemental oxygen therapy. Physical therapy evaluation and treatment for placement planning. 08/31: Reached clinical stability. Decision made to discharge home. Prescription sent to pharmacy. 2 weeks PCP follow-up appointment made for the patient's. All questions were answered prior to patient being physically discharged. Discharge diagnosis: CoVID pneumonia Time Spent with Patient Time attestation: Total time spent providing and/or coordinating discharge services: Time spent: Less than 30 minutes EXAM Constitutional Vitals: Temp Pulse Resp BP Pulse Ox O2 Del Method O2 Flow Rate 36.5 C 68 20 146/105 93 2 08/31/22 08:00 08/31/22 08:00 08/31/22 08:00 08/31/22 08:00 08/31/22 08:00 08/31/22 08:00 08/31/22 03:36 General appearance: cooperative, morbidly obese and no acute distress Head Head exam: Present atraumatic and normocephalic Eye Eye exam: Present EOMI and PERRL ENT ENT exam: Present mucous membranes moist, normal exam and normal external ear exam Neck Neck exam: Present normal inspection; Absent lymphadenopathy, tenderness or thyromegaly Respiratory Respiratory exam: Absent accessory muscle use, respiratory distress or wheezes Cardiovascular Cardiovascular exam: Present irregular rhythm; Absent JVD GI/Abdominal GI/Abdominal exam: Present normal bowel sounds and soft; Absent organomegaly or tenderness Extremities Exam Extremities exam: Present full ROM, normal capillary refill and normal inspection; Absent tenderness Neurological Exam Neurological exam: Present alert, CN II-XII intact and oriented X3; Absent motor sensory deficit Psychiatric Psychiatric exam: Present normal affect and normal mood; Absent anxious or depressed Skin Skin exam: Present dry and intact Discharge Data Data Completed and Pending Labs on day of discharge: Labs from last 24 hours 08/31/22 08/31/22 05:10 05:10 WBC 22.1 H RBC 4.22 Hgb 11.9 Hct 37.8 MCV 89.6 MCH 28.2 MCHC 31.5 RDW 14.2 Plt Count 219 MPV 10.4 Immature Gran % (Auto) 1.0 H Neut % (Auto) 89.8 H Lymph % (Auto) 5.7 L [place] % (Auto) 3.3 Eos % (Auto) 0 Baso % (Auto) 0.2 Lymph # (Auto) 1.26 L [place] # (Auto) 0.73 Eos # (Auto) 0 Baso # (Auto) 0.04 Immature Gran # 0.22 H Absolute Neutrophils 19.87 H Sodium 138 Potassium 4.5 Chloride 102 Carbon Dioxide 27 Anion Gap 9.0 BUN 19 Creatinine 0.7 GFR Calculation 83 Glucose 121 H Calcium 8.6 Total Bilirubin 0.2 AST 29 ALT 30 Alkaline Phosphatase 115 Total Protein 6.8 Albumin 3.3 Globulin 3.5 Albumin/Globulin Ratio 0.9 L Preliminary micro results at discharge 08/29/22 11:18 Blood Culture - Preliminary Blood 08/29/22 11:10 Blood Culture - Preliminary Blood Discharge Plan Patient/Caregiver Discharge Instructions Activity: increase activity as tolerated Diet: Regular Diet Prescriptions: New dextromethorphan-guaifenesin [Diabetic Tussin DM] 10-100 mg/5 mL Liquid 10 ml PO Q4HP PRN (Reason: Cough) Qty: 500 0RF Continued furosemide [Lasix] 40 mg tablet 40 mg PO QDAY Qty: 90 1RF potassium chloride 20 mEq tablet extended release 20 meq PO QDAY Qty: 90 1RF Xarelto 20 mg tablet 20 mg PO QDAY Qty: 90 1RF Rx Instructions: must administer with evening meal diltiazem HCl [Cartia XT] 180 mg capsule,extended release 24hr 180 mg PO QDAY Qty: 90 1RF losartan [Cozaar] 50 mg tablet 50 mg PO QDAY Qty: 90 1RF pilocarpine HCl 5 mg tablet 5 mg PO TID PRN (Reason: sjorgens) Qty: 270 0RF alendronate 70 mg tablet See Rx Instructions .ROUTE .COMPLEX Qty: 12 0RF Dose Instruction: TAKE 1 TABLET BY MOUTH EVERY WEEK Rx Instructions: TAKE 1 TABLET BY MOUTH EVERY WEEK (DME) CPAP Machine and Supplies Qty: 1 0RF Dose Instruction: As directed Rx Instructions: As directed fluorouracil 5 % cream 1 applic topical BID Rx Instructions: Per Dr. Arreola, starting in July 2022 multivitamin 1 EACH tablet 1 tab PO DAILY Follow Up Plan Follow up with: Gopal Michael MD [Primary Care Provider] - Patient Disposition: Home, Self-Care Prognosis: Fair Rehab Potential: Good I certify that the patient requires SNF services: No Overall status at discharge: patient is back to baseline Discharge Orders: Discharge Order (Routine); Ordered 08/31/22 Ordered By: Tom THIBODEAUX VTE Deep Vein Thrombosis/Pulmonary Embolism Present on Admission: No
[2022-08-31] MEDS: REMDESIVIR 100 MG in 0.9 % SODIUM CHLORIDE 250 ML IV SCH (10:34)
[2022-08-31] MEDS: RIVAROXABAN 20 MG TABLET PO SCH (10:35)
[2022-08-31] MEDS: FLUOROURACIL 5% TOPICAL SCH (10:38)
== END 2022-08-31 14:20 | disposition home or self-care (01) | DRG 177 ==
LOC: ED 23:04 → MEDSUR 08-29 10:30
PROVIDERS: ADMIT Internal Medicine; ATTEND Internal Medicine

== ENCOUNTER 2022-10-15 13:45 | Observation (INO) ==
[2022-10-15] MEDS ORDERED: IOPAMIDOL 100 ML BOTTLE IV ONE (13:46)
--- NOTE | 2022-10-15 13:57 | Emergency Department Note ---
HPI General Chief complaint: Weakness Stated complaint: Weakness Time Seen by Provider: 10/15/22 13:47 Source: patient Mode of arrival: wheelchair History of Present Illness HPI Narrative: Narrative: Patient is a 77-year-old female with a complex history who presents to the emergency department due to right lower extremity pain. She states that she has had worsening pain and swelling for approximately 3 days. She states that the pain worsens when she tries to stand. She denies any other palliative or provocative factors. She states that it is a burning and pressure-like pain. She states that she has had swelling in both legs, but it does seem to be worse on the right. She also endorses redness developing on the right leg all the way up her thighs. She states that she has had some chills. She does endorse cough and shortness of breath as well. She states that her shortness of breath worsens when she lays flat, but denies any other worsening of her shortness of breath. She denies any other concerns at this time. Related Data Home Medications Medication Instructions Recorded Confirmed multivitamin 1 tab PO DAILY 06/22/15 10/16/22 alendronate 70 mg tablet 70 mg PO WEEKLY 10/16/22 10/16/22 Previous Rx's Medication Instructions Recorded CPAP Machine and Supplies #1 ea 10/18/18 rivaroxaban 20 mg tablet (Xarelto) 20 mg PO QDAY #90 tabs 05/04/22 diltiazem HCl 180 mg 180 mg PO QDAY #90 caps 05/14/22 capsule,extended release 24 hr (Cartia XT) losartan 50 mg tablet (Cozaar) 50 mg PO QDAY #90 tabs 06/29/22 pilocarpine HCl 5 mg tablet 5 mg PO TID PRN sjorgens #270 tabs 07/26/22 furosemide 40 mg tablet (Lasix) 40 mg PO QDAY #90 tabs 08/31/22 potassium chloride 20 mEq 20 meq PO QDAY #90 tabs 08/31/22 tablet,extended release oxycodone 5 mg tablet 5 mg PO Q4-6HP PRN Per Pain 10/18/22 Protocol #10 tabs Allergies Allergy/AdvReac Type Severity Reaction Status Date / Time cephalexin Allergy Unknown Unknown Verified 09/07/22 11:09 doxycycline Allergy Unknown Unknown Verified 09/07/22 11:09 clindamycin AdvReac Mild Itching Verified 09/07/22 11:09 sulfamethoxazole AdvReac Mild Itching Verified 09/07/22 11:09 [From Bactrim] trimethoprim [From Bactrim] AdvReac Mild Itching Verified 09/07/22 11:09 tape Allergy Unknown Unknown Uncoded 09/07/22 11:09 Review of Systems ROS ROS Narrative: Narrative: Constitutional: Denies fever or weakness Eyes: Denies eye pain or vision change ENT ED: Denies throat pain or rhinorrhea Cardiovascular: Denies chest pain, dyspnea on exertion, orthopnea or edema Respiratory: Denies shortness of breath or cough Gastrointestinal: Denies abdominal pain, nausea, vomiting, diarrhea, constipation, hematochezia or melena Musculoskeletal: Denies back pain or myalgia Integumentary: Reports change in color; Denies rash or lesions Neurological: Denies headache, weakness, numbness, confusion, abnormal gait or dizziness Endocrine: Denies fatigue or polyuria PFSH Narrative Patient History Narrative: Narrative: Medical/Surgical/Family History All Active Problems (Updated 10/20/22 @ 07:32 by Chad Barrett MD) Cellulitis (Acute) Foot ulcer, right (Acute) Cellulitis of both lower extremities (Acute) Sepsis (Acute) Hospital discharge follow-up (Acute) AMELIA on CPAP (Acute) Hypoxia (Acute) COVID-19 (Acute) Pneumonia (Acute) COPD (chronic obstructive pulmonary disease) (Chronic) Dysmetabolic syndrome X (Chronic) Hammer toe, acquired (Chronic) Heart disease (Chronic) Hyperlipidemia (Chronic) Hypertension, essential (Chronic) Obesity (Chronic) Obstructive sleep apnea (Chronic) Osteoarthritis (Chronic) Pes planus (Chronic) Sciatica (Chronic) Sleep apnea (Chronic) Hx of colonoscopy (Chronic 12/03/16) Atrial fibrillation (Chronic) Jaw pain (Chronic) Obesities, morbid (Chronic) Atrial fibrillation (Chronic) Foot ulcer, left (Chronic) Nephrolithiasis (Acute) Cyst of spleen (Acute) Shortness of breath (Acute) Morbid obesity due to excess calories (Acute) Abnormal blood test (Acute) Cellulitis of left foot (Acute) Venous stasis (Acute) LUQ abdominal pain (Acute) Headache (Acute) Neck ache (Acute) Left sided chest pain (Acute) Hematuria (Acute) Right facial numbness (Acute) UTI (urinary tract infection) (Acute) Neck pain on right side (Acute) Microscopic hematuria (Acute) Low back pain (Acute) Medicare annual wellness visit, subsequent (Acute) Annual physical exam (Acute) Overactive bladder (Acute) Back muscle spasm (Acute) Xerostomia (Chronic) Abscess (Acute) Elevated antinuclear antibody (SONIDO) level (Acute) Abnormal immunological finding in serum (Chronic) Arthralgia of hand (Acute) Sjogrens syndrome (Chronic) Encounter for long-term (current) use of high-risk medication (Chronic) Tendinitis of both rotator cuffs (Acute) Biceps tendinitis of both upper extremities (Chronic) Left shoulder pain (Chronic) Incontinence (Acute) Angiokeratoma of vulva (Acute) Annual physical exam (Acute) Right sided sciatica (Acute) Laceration of toe (Acute) Medical History Abnormal immunological finding in serum Abscess Allergy to antibiotic 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 Annual physical exam Arthralgia of hand Atrial fibrillation Atrial fibrillation Atypical chest pain Back muscle spasm Biceps tendinitis of both upper extremities Cellulitis of left foot Cervical spondylosis COPD (chronic obstructive pulmonary disease) Cyst of spleen Dysmetabolic syndrome X Elevated antinuclear antibody (SONIDO) level Encounter for long-term (current) use of high-risk medication Foot ulcer, left Hammer toe, acquired 11/15/14-garcia Heart disease 10/28/09-low systolic, low diastolic Hives Hyperlipidemia Hypertension, essential Jaw pain Left shoulder pain Low back pain Medicare annual wellness visit, subsequent Methicillin resistant Staphylococcus epidermidis infection Microscopic hematuria Schedule for CT/KUB along with cystoscopy Neck pain on right side Nephrolithiasis CT KUB Obesities, morbid Obesity morbid Obstructive sleep apnea Osteoarthritis 08/18/04 lower leg Pes planus Pulmonary embolism 01/29/2014 acute multi-segmental, bilateral Right shoulder tendinitis Sciatica Sinusitis Sjogrens syndrome Sleep apnea Tendinitis of both rotator cuffs Thrombophlebitis Upper respiratory infection UTI (urinary tract infection) UTI (urinary tract infection) Xerostomia Surgical History History of 3 sections Hx of colonoscopy (12/03/16) 09/19/2013 tubular adenoma, hyperpalstic polyp S/P knee surgery S/P sclerotherapy of varicose veins S/P shoulder surgery Family History father Essential hypertension mother Essential hypertension Other Kidney stone Social History Smoking Status: Former smoker Alcohol Intake Frequency: does not drink Substance Use: does not use Exam Narrative Narrative: Narrative: General General appearance: Present alert and in no apparent distress; Absent anxious, appears intoxicated or sleepy Head Head: Present atraumatic and normocephalic Eye Eye: Present EOMI; Absent scleral icterus or nystagmus ENT ENT: Present mucous membranes moist; Absent nasal congestion Neck Neck: Present full ROM; Absent tenderness Chest Chest: Present normal inspection and symmetric chest wall rise Respiratory Respiratory: Present normal lung sounds bilaterally; Absent respiratory distress or accessory muscle use Cardiovascular Cardiovascular: Present regular rate, normal rhythm and normal heart sounds Adbominal Abdominal: Present soft; Absent distention Extremities Extremities: Present normal inspection, full ROM, tenderness (RLE), pedal edema and pretibial edema Back Back: Present normal inspection and full ROM Neurological Neurological: Present alert and oriented X3 Psychiatric Psychiatric: Present normal affect and normal mood Skin Skin: Present warm (WNL), dry, normal color and erythema Course Vital Signs Vital signs: Vital Signs Temperature 98.4 F 10/15/22 13:45 Pulse Rate 82 10/15/22 13:45 Respiratory Rate 18 10/15/22 13:45 Blood Pressure 138/68 10/15/22 13:45 Pulse Oximetry (%) 94 10/15/22 13:45 Oxygen Delivery Method 10/15/22 13:45 Temperature 98.4 F 10/18/22 12:00 Pulse Rate 85 10/18/22 12:00 Respiratory Rate 20 10/18/22 12:00 Blood Pressure 147/71 10/18/22 12:00 Pulse Oximetry (%) 94 10/18/22 12:00 Oxygen Delivery Method 10/18/22 12:00 Oxygen Flow Rate (L/min) 0 10/17/22 08:00 [facility] Narrative Medical decision making narrative: Narrative: Patient is a 77-year-old female with a complex history who presents to the emergency department due to right lower extremity pain. Cellulitis is most likely given erythema, heat overlying the erythema, and burning pain described by the patient. Due to the possibility of DVT a DVT ultrasound was performed and negative. Patient is also found to have influenza B and covid 19. Due to concern for possible pneumonia a chest xr was performed. This demonstrated possible pneumonia. She has received ceftriaxone, azithromycin, and vancomycin. CT angio was performed due to the possibility of clot and was negative. We attempted to admit patient, but there are not any beds available at this time. Patient is amenable to transfer to [facility], or [facility]. We called, but there are not any beds available at those sites either. We will observe patient in the ED until a bed becomes available. Patient has been signed out to Dr. Hopper. Lab Data Result diagrams: 10/18/22 05:46 10/18/22 05:46 Labs: Lab Results 10/15/22 10/15/22 10/15/22 Range/Units 14:20 14:20 14:20 WBC 21.3 H (4.5-11.0) K/mcL RBC 3.90 (3.59-5.38) M/mcL Hgb 10.8 L (11.2-15.7) g/dL Hct 34.6 (34.1-44.9) % POC Hct (36-48) MCV 88.7 (80.0-100.0) fL MCH 27.7 (26.0-34.0) pg MCHC 31.2 (31.0-36.0) g/dL RDW 14.6 H (11.5-14.5) % Plt Count 169 (140-440) K/mcL MPV 10.5 (8.8-12.5) fL Immature Gran % (Auto) 2.7 H (0.0-0.5) % Neut % (Auto) 90.1 H (38.0-78.0) % Lymph % (Auto) 4.0 L (15.5-49.0) % [place] % (Auto) 3.0 (1.0-12.0) % Eos % (Auto) 0 (0.0-7.0) % Baso % (Auto) 0.2 (0.0-2.0) % Lymph # (Auto) 0.86 L (1.50-4.80) K/mcL [place] # (Auto) 0.63 (0.10-0.90) K/mcL Eos # (Auto) 0.01 (0.00-0.70) K/mcL Baso # (Auto) 0.05 (0.00-0.30) K/mcL Immature Gran # 0.58 H (0.00-0.05) K/mcl Absolute Neutrophils 19.16 H (1.80-8.00) K/mcL D-Dimer 2.26 H (0.27-0.50) ug/mL POC VBG pH (7.32-7.42) POC VBG pCO2 at Temp (41-51) POC VBG pO2 (25-40) POC VBG HCO3 (24-28) POC VBG Total CO2 (25-29) POC Venous O2 Sat (40-70) POC VBG Base Excess (-2-2) VBG Lactic Acid (0.5-2) POC Sodium (133-145) Sodium (133-145) mmol/L POC Potassium (3.3-5.1) Potassium (3.3-5.1) mmol/L POC Chloride (96-108) Chloride (96-108) mmol/L Carbon Dioxide (22-30) mmol/L POC Total CO2 (22-30) Anion Gap (8.0-16.0) POC BUN (6-20) BUN (8-23) mg/dL Creatinine (0.6-1.1) mg/dL POC Creatinine (0.6-1.2) GFR Calculation Glucose (70-105) mg/dL POC Glucose (70-105) Calcium (8.6-10.4) mg/dL POC WB Ioniz Calcium (1.16-1.32) NT-Pro-B Natriuret Pep 1715.0 H (<450.0) pg/mL Procalcitonin (<0.10) ng/mL POC Troponin I (0.00-0.08) 10/15/22 10/15/22 10/15/22 Range/Units 14:29 14:32 20:50 WBC (4.5-11.0) K/mcL RBC (3.59-5.38) M/mcL Hgb (11.2-15.7) g/dL Hct (34.1-44.9) % POC Hct 36.0 (36-48) MCV (80.0-100.0) fL MCH (26.0-34.0) pg MCHC (31.0-36.0) g/dL RDW (11.5-14.5) % Plt Count (140-440) K/mcL MPV (8.8-12.5) fL Immature Gran % (Auto) (0.0-0.5) % Neut % (Auto) (38.0-78.0) % Lymph % (Auto) (15.5-49.0) % [place] % (Auto) (1.0-12.0) % Eos % (Auto) (0.0-7.0) % Baso % (Auto) (0.0-2.0) % Lymph # (Auto) (1.50-4.80) K/mcL [place] # (Auto) (0.10-0.90) K/mcL Eos # (Auto) (0.00-0.70) K/mcL Baso # (Auto) (0.00-0.30) K/mcL Immature Gran # (0.00-0.05) K/mcl Absolute Neutrophils (1.80-8.00) K/mcL D-Dimer (0.27-0.50) ug/mL POC VBG pH 7.42 (7.32-7.42) POC VBG pCO2 at Temp 39.2 L (41-51) POC VBG pO2 25 (25-40) POC VBG HCO3 25.5 (24-28) POC VBG Total CO2 27.0 (25-29) POC Venous O2 Sat 48.0 (40-70) POC VBG Base Excess 1.0 (-2-2) VBG Lactic Acid 0.8 (0.5-2) POC Sodium 135 (133-145) Sodium (133-145) mmol/L POC Potassium 4.0 (3.3-5.1) Potassium (3.3-5.1) mmol/L POC Chloride 102 (96-108) Chloride (96-108) mmol/L Carbon Dioxide (22-30) mmol/L POC Total CO2 24.0 (22-30) Anion Gap (8.0-16.0) POC BUN 21 H (6-20) BUN (8-23) mg/dL Creatinine (0.6-1.1) mg/dL POC Creatinine 0.8 (0.6-1.2) GFR Calculation Glucose (70-105) mg/dL POC Glucose 124 H (70-105) Calcium (8.6-10.4) mg/dL POC WB Ioniz Calcium 1.07 L (1.16-1.32) NT-Pro-B Natriuret Pep (<450.0) pg/mL Procalcitonin (<0.10) ng/mL POC Troponin I 0.04 (0.00-0.08) 10/15/22 10/16/22 10/16/22 Range/Units 20:52 06:12 06:12 WBC 16.9 H (4.5-11.0) K/mcL RBC 3.83 (3.59-5.38) M/mcL Hgb 10.9 L (11.2-15.7) g/dL Hct 33.6 L (34.1-44.9) % POC Hct (36-48) MCV 87.7 (80.0-100.0) fL MCH 28.5 (26.0-34.0) pg MCHC 32.4 (31.0-36.0) g/dL RDW 14.6 H (11.5-14.5) % Plt Count 151 (140-440) K/mcL MPV 10.9 (8.8-12.5) fL Immature Gran % (Auto) 1.3 H (0.0-0.5) % Neut % (Auto) 86.2 H (38.0-78.0) % Lymph % (Auto) 6.3 L (15.5-49.0) % [place] % (Auto) 4.3 (1.0-12.0) % Eos % (Auto) 1.5 (0.0-7.0) % Baso % (Auto) 0.4 (0.0-2.0) % Lymph # (Auto) 1.06 L (1.50-4.80) K/mcL [place] # (Auto) 0.73 (0.10-0.90) K/mcL Eos # (Auto) 0.26 (0.00-0.70) K/mcL Baso # (Auto) 0.06 (0.00-0.30) K/mcL Immature Gran # 0.22 H (0.00-0.05) K/mcl Absolute Neutrophils 14.55 H (1.80-8.00) K/mcL D-Dimer (0.27-0.50) ug/mL POC VBG pH (7.32-7.42) POC VBG pCO2 at Temp (41-51) POC VBG pO2 (25-40) POC VBG HCO3 (24-28) POC VBG Total CO2 (25-29) POC Venous O2 Sat (40-70) POC VBG Base Excess (-2-2) VBG Lactic Acid (0.5-2) POC Sodium (133-145) Sodium 132 L (133-145) mmol/L POC Potassium (3.3-5.1) Potassium 4.5 (3.3-5.1) mmol/L POC Chloride (96-108) Chloride 102 (96-108) mmol/L Carbon Dioxide 20 L (22-30) mmol/L POC Total CO2 (22-30) Anion Gap 10.0 (8.0-16.0) POC BUN (6-20) BUN 15 (8-23) mg/dL Creatinine 0.7 (0.6-1.1) mg/dL POC Creatinine (0.6-1.2) GFR Calculation 83 Glucose 109 H (70-105) mg/dL POC Glucose (70-105) Calcium 7.9 L (8.6-10.4) mg/dL POC WB Ioniz Calcium (1.16-1.32) NT-Pro-B Natriuret Pep (<450.0) pg/mL Procalcitonin 1.40 H (<0.10) ng/mL POC Troponin I (0.00-0.08) ED POC Tests ED POC Tests: SILVINO - Influenza A Negative SILVINO - Influenza B Positive SILVINO - SARS Antigen Positive EKG Data EKG #1: EKG attestation: Yes I reviewed and interpreted this EKG. EKG results narrative: Atrial fibrillation with a rate of 85, normal axis, QRS of 162, QTc of 499, T wave flattening in lead III, and absence of ST elevation or depression. Discharge Plan Patient/Caregiver Discharge Instructions Pt seen by POLICE COMMUNICATIONS OPERATOR/PA only: No Clinical Impression: Cellulitis Activity: increase activity as tolerated Patient Disposition: Still a Patient Discharge Date/Time: 10/16/22 09:30
--- NOTE | 2022-10-15 14:27 | EKG ---
[facility] Test Date: 2022-10-15 Pat Name: Miriam Yanez Department: ED Room: Gender: Female Lotus Notes Developer: YANCY : [id number] Requested By: Chad Barrett Order Number: [id number] Reading MD: Karlos Petersen M.D. Measurements Intervals [place] Rate: 85 P: CT: QRS: 52 QRSD: 162 T: 30 QT: 420 QTc: 499 Interpretive Statements Atrial fibrillation Right bundle branch block Electronically Signed On 10-15-2022 14:26:26 PST by Karlos Petersen M.D. /store/[email or web address]/[id number]
--- NOTE | 2022-10-15 14:27 | XRay Report ---
HISTORY: Short of breath, weakness FINDINGS: There is a vague haziness in the lung parenchyma in both lung bases, right greater than left. This is a chronic or recurrent finding which was also seen on 08/29/22. Patient is very large and there is scatter artifact in both lungs, created by the superimposed subcutaneous fat and the breasts. Mid and upper lung pérez are clear. The heart size is normal. There is no evidence of congestive heart failure or pleural effusion. IMPRESSION: Possible pneumonia/inflammation in both lower lobes versus artifact created by overlying chest wall Interpreted and Authenticated by: Lorenzo Petersen 10/15/22
[2022-10-15] MEDS ORDERED: AZITHROMYCIN 500 MG in DEXTROSE 5% IN WATER 250 ML IV ONE (14:33)
[2022-10-15] MEDS ORDERED: cefTRIAXone 1 GM VIAL IV ONE (14:33)
[2022-10-15 14:47] LABS: POC Calcium, Ionized 1.07 (1.16-1.32); POC Creatinine 0.8 (0.6-1.2)
[2022-10-15] MEDS ORDERED: 0.9 % SODIUM CHLORIDE 500 ML IV ONE (14:52)
[2022-10-15 15:02] LABS: Basophils # (Auto) 0.05 K/mcL (0.00-0.30); Basophils % (Auto) 0.2 % (0.0-2.0); Eosinophils # (Auto) 0.01 K/mcL (0.00-0.70); Eosinophils % (Auto) 0 % (0.0-7.0); Hematocrit 34.6 % (34.1-44.9); Hemoglobin 10.8 g/dL (11.2-15.7); Lymphocytes # (Auto) 0.86 K/mcL (1.50-4.80); Mean Cell Volume 88.7 fL (80.0-100.0); Mean Corpuscular HGB Conc 31.2 g/dL (31.0-36.0); Mean Platelet Volume 10.5 fL (8.8-12.5); Monocytes # (Auto) 0.63 K/mcL (0.10-0.90); Neutrophils % (Auto) 90.1 % (38.0-78.0); Platelet Count 169 K/mcL (140-440); Red Cell Distribution Width 14.6 % (11.5-14.5); WBC 21.3 K/mcL (4.5-11.0)
--- NOTE | 2022-10-15 17:01 | Cat Scan Report ---
History: Short of breath, elevated serum d-dimer level TECHNIQUE: Following injection of intravenous contrast the patient was imaged during the late pulmonary arterial phase scanning from the thoracic inlet through the diaphragms. Sagittal, coronal and MIPS images were created. The radiation exposure was limited using dose reduction technology. FINDINGS: The pulmonary arteries are normal without evidence of emboli. The heart size is normal. There are few scattered calcified plaques in the coronary arteries. Aorta is normal in caliber and contains several plaques along the wall of the arch. There are few linear bands of scar or discoid atelectasis in both lung bases. There is no evidence of pneumonia or emphysema. The trachea and bronchi are normal. The haziness seen in the lung bases on the preceding chest x-ray is due to a combination of superimposed subcutaneous fat and a large epicardial fat pads. No lung mass is present. There are no abnormally enlarged lymph nodes and no pleural effusion. There to moderate size and one small cyst in the spleen. These have not enlarged since prior CT done on 11/30/19. There is moderate stenosis at the origins of both renal arteries IMPRESSION: No evidence pulmonary emboli Mild scarring or discoid atelectasis in the posterior basal segments of both lower lobes and inferior segment of the lingula Dr. Barrett was called with the report Interpreted and Authenticated by: Lorenzo Petersen 10/15/22
--- NOTE | 2022-10-15 17:12 | Ultrasound Report ---
History: Right leg swelling and pain, elevated d-dimer FINDINGS: Patient was technically difficult to scan due to very large body habitus. The visualized portions of the deep veins from the groin through the calf have normal flow, augmentation and compressibility. There are normal waveform patterns. No abnormal fluid collection is seen. There is no appreciable edema. IMPRESSION: No evidence of deep venous thrombosis Interpreted and Authenticated by: Lorenzo Petersen 10/15/22
[2022-10-15] MEDS ORDERED: VANCOMYCIN 2,000 MG in 0.9 % SODIUM CHLORIDE 500 ML IV ONE (17:43)
[2022-10-15] MEDS ORDERED: ACETAMINOPHEN 500 MG TABLET PO ONE (20:35)
[2022-10-15] MEDS ORDERED: RIVAROXABAN 20 MG TABLET PO STA (21:11)
[2022-10-15] MEDS ORDERED: FUROSEMIDE 40 MG TABLET PO ONE (21:12)
[2022-10-16] MEDS ORDERED: VANCOMYCIN PER PHARMACY IV ONE (05:54)
[2022-10-16 06:41] LABS: Basophils # (Auto) 0.06 K/mcL (0.00-0.30); Basophils % (Auto) 0.4 % (0.0-2.0); Eosinophils # (Auto) 0.26 K/mcL (0.00-0.70); Eosinophils % (Auto) 1.5 % (0.0-7.0); Hematocrit 33.6 % (34.1-44.9); Hemoglobin 10.9 g/dL (11.2-15.7); Lymphocytes # (Auto) 1.06 K/mcL (1.50-4.80); Lymphocytes % (Auto) 6.3 % (15.5-49.0); Mean Cell Volume 87.7 fL (80.0-100.0); Mean Corpuscular HGB Conc 32.4 g/dL (31.0-36.0); Mean Platelet Volume 10.9 fL (8.8-12.5); Monocytes # (Auto) 0.73 K/mcL (0.10-0.90); Monocytes % (Auto) 4.3 % (1.0-12.0); Neutrophils % (Auto) 86.2 % (38.0-78.0); Platelet Count 151 K/mcL (140-440); RBC 3.83 M/mcL (3.59-5.38); Red Cell Distribution Width 14.6 % (11.5-14.5); WBC 16.9 K/mcL (4.5-11.0)
[2022-10-16 06:52] LABS: Blood Urea Nitrogen 15 mg/dL (8-23); Calcium 7.9 mg/dL (8.6-10.4); Carbon Dioxide 20 mmol/L (22-30); Chloride 102 mmol/L (96-108); Glomerular Filtration Rate 83; Glucose 109 mg/dL (70-105)
--- NOTE | 2022-10-16 08:50 | Internal Med History&Physical ---
HPI History of Present Illness Patient information: Note initiated : 10/16/22 at 8:43 am Service Date, if different from initiated Date: [] Patient: Miriam Yanez 77 y/o F admitted on for Weakness. Chief Complaint: [] Chief complaint: legs pain History of present illness: Ms. Yanez is a 77 year old F history of obstructive sleep apnea on CPAP, COPD, atrial fibrillation's, essential hypertensions, sodium syndrome, presenting with 4-day history of worsening leg pain, swelling, redness. She sees Dr. Marley for multiple chronic bilateral lower extremity skin ulcers. Over the past 4 days, she has noticed right greater than left bilateral lower extremities swelling, redness, and pain. She denies any additional trauma or injury. She is also feeling general body weakness but she had flu since last Tuesday. She denies any fever, chills, or diaphoresis. She denies any GI symptoms such as nausea vomiting diarrhea or constipations. Vital sign significant for mild tachycardia and tachypnea heart rate rate of breathing in the 100 and mid 20s, respectively. Labs significant for leukocytosis WBC 21.3, and procalcitonin level of 1.40. COVID, influenza a and B, and RSV PCR negative. Chest x-ray negative for pulmonary embolism. Also no consolidations seen. Extremity venous study no evidence of DVT. Admission request is called for cellulitis with sepsis criteria. Constitutional Constitutional: Absent chills, excessive sweating, fatigue, fever(s) or weakness EENT Eyes: Absent blurry vision, change in vision, loss of vision or other visual disturbances Ears: Absent decreased hearing or tinnitus Nose, mouth and throat: Absent abnormal hearing, dry mouth, headache(s), nasal congestion or sore throat Cardiovascular Cardiovascular: Absent chest pain, chest pain at rest, edema, irregular heart rhythm or palpatations Respiratory Respiratory: Absent cough, dyspnea or wheezing Gastrointestinal Gastrointestinal: Absent abdominal pain, constipation, diarrhea, nausea or vomiting Musculoskeletal Musculoskeletal: Absent back pain, deformity, limited range of motion, muscle cramps, muscle weakness or numbness Integumentary Integumentary: Present as per HPI, lesions, non-healing lesions, swelling and wounds; Absent rash Neurological Neurological: Absent focal weakness, headache(s) or numbness Psychiatric Psychiatric: Absent anxiety, depression or hallucinations PFSH PFSH All Active Problems (Updated 09/13/22 @ 09:53 by Gopal Michael MD) Hospital discharge follow-up (Acute) AMELIA on CPAP (Acute) Hypoxia (Acute) COVID-19 (Acute) Pneumonia (Acute) COPD (chronic obstructive pulmonary disease) (Chronic) Dysmetabolic syndrome X (Chronic) Hammer toe, acquired (Chronic) Heart disease (Chronic) Hyperlipidemia (Chronic) Hypertension, essential (Chronic) Obesity (Chronic) Obstructive sleep apnea (Chronic) Osteoarthritis (Chronic) Pes planus (Chronic) Sciatica (Chronic) Sleep apnea (Chronic) Hx of colonoscopy (Chronic 12/03/16) Atrial fibrillation (Chronic) Jaw pain (Chronic) Obesities, morbid (Chronic) Atrial fibrillation (Chronic) Foot ulcer, left (Chronic) Nephrolithiasis (Acute) Cyst of spleen (Acute) Shortness of breath (Acute) Morbid obesity due to excess calories (Acute) Abnormal blood test (Acute) Cellulitis of left foot (Acute) Venous stasis (Acute) LUQ abdominal pain (Acute) Headache (Acute) Neck ache (Acute) Left sided chest pain (Acute) Hematuria (Acute) Right facial numbness (Acute) UTI (urinary tract infection) (Acute) Neck pain on right side (Acute) Microscopic hematuria (Acute) Low back pain (Acute) Medicare annual wellness visit, subsequent (Acute) Annual physical exam (Acute) Overactive bladder (Acute) Back muscle spasm (Acute) Xerostomia (Chronic) Abscess (Acute) Elevated antinuclear antibody (SONIDO) level (Acute) Abnormal immunological finding in serum (Chronic) Arthralgia of hand (Acute) Sjogrens syndrome (Chronic) Encounter for long-term (current) use of high-risk medication (Chronic) Tendinitis of both rotator cuffs (Acute) Biceps tendinitis of both upper extremities (Chronic) Left shoulder pain (Chronic) Incontinence (Acute) Angiokeratoma of vulva (Acute) Annual physical exam (Acute) Right sided sciatica (Acute) Laceration of toe (Acute) Medical History Abnormal immunological finding in serum Abscess Allergy to antibiotic 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 Annual physical exam Arthralgia of hand Atrial fibrillation Atrial fibrillation Atypical chest pain Back muscle spasm Biceps tendinitis of both upper extremities Cellulitis of left foot Cervical spondylosis COPD (chronic obstructive pulmonary disease) Cyst of spleen Dysmetabolic syndrome X Elevated antinuclear antibody (SONIDO) level Encounter for long-term (current) use of high-risk medication Foot ulcer, left Hammer toe, acquired 11/15/14-garcia Heart disease 10/28/09-low systolic, low diastolic Hives Hyperlipidemia Hypertension, essential Jaw pain Left shoulder pain Low back pain Medicare annual wellness visit, subsequent Methicillin resistant Staphylococcus epidermidis infection Microscopic hematuria Schedule for CT/KUB along with cystoscopy Neck pain on right side Nephrolithiasis CT KUB Obesities, morbid Obesity morbid Obstructive sleep apnea Osteoarthritis 08/18/04 lower leg Pes planus Pulmonary embolism 01/29/2014 acute multi-segmental, bilateral Right shoulder tendinitis Sciatica Sinusitis Sjogrens syndrome Sleep apnea Tendinitis of both rotator cuffs Thrombophlebitis Upper respiratory infection UTI (urinary tract infection) UTI (urinary tract infection) Xerostomia Surgical History History of 3 sections Hx of colonoscopy (12/03/16) 09/19/2013 tubular adenoma, hyperpalstic polyp S/P knee surgery S/P sclerotherapy of varicose veins S/P shoulder surgery Family History father Essential hypertension mother Essential hypertension Other Kidney stone Social History household members: alone lives independently: Yes marital status: occupational status: retired occupation: [employer] smoking status: Former smoker smoking status stop date: 10/03/05 alcohol intake frequency: does not drink substance use type: does not use MEDS/ALLERGIES Home Medications and Allergies Home Medications Medication Instructions Recorded Confirmed Type multivitamin 1 tab PO DAILY 06/22/15 10/15/22 History CPAP Machine and Supplies #1 ea 10/18/18 09/07/22 Rx fluorouracil 5 % topical cream 1 applic topical BID 04/30/22 09/07/22 History rivaroxaban 20 mg tablet (Xarelto) 20 mg PO QDAY #90 tabs 05/04/22 10/15/22 Rx diltiazem HCl 180 mg 180 mg PO QDAY #90 caps 05/14/22 10/15/22 Rx capsule,extended release 24 hr (Cartia XT) losartan 50 mg tablet (Cozaar) 50 mg PO QDAY #90 tabs 06/29/22 10/15/22 Rx pilocarpine HCl 5 mg tablet 5 mg PO TID PRN sjorgens #270 tabs 07/26/22 10/15/22 Rx alendronate 70 mg tablet See Rx Instructions .Route 08/19/22 09/07/22 Rx .COMPLEX #12 tabs dextromethorphan-guaifenesin 10 10 ml PO Q4HP PRN Cough #500 mL 08/31/22 09/07/22 Rx mg-100 mg/5 mL oral liquid (Diabetic Tussin DM) furosemide 40 mg tablet (Lasix) 40 mg PO QDAY #90 tabs 08/31/22 10/15/22 Rx potassium chloride 20 mEq 20 meq PO QDAY #90 tabs 08/31/22 10/15/22 Rx tablet,extended release Allergies Allergy/AdvReac Type Severity Reaction Status Date / Time cephalexin Allergy Unknown Unknown Verified 09/07/22 11:09 doxycycline Allergy Unknown Unknown Verified 09/07/22 11:09 clindamycin AdvReac Mild Itching Verified 09/07/22 11:09 sulfamethoxazole AdvReac Mild Itching Verified 09/07/22 11:09 [From Bactrim] trimethoprim [From Bactrim] AdvReac Mild Itching Verified 09/07/22 11:09 tape Allergy Unknown Unknown Uncoded 09/07/22 11:09 EXAM Constitutional Vitals: Temp Pulse Resp BP Pulse Ox O2 Del Method O2 Flow Rate 37.3 C H 100 H 15 122/81 92 1 10/16/22 00:14 10/16/22 06:49 10/16/22 06:49 10/16/22 06:46 10/16/22 06:49 10/16/22 04:37 10/16/22 04:37 General appearance: cooperative and no acute distress Head Head exam: Present atraumatic and normocephalic Eye Eye exam: Present EOMI and PERRL ENT ENT exam: Present mucous membranes moist, normal exam and normal external ear exam Additional comments: Nasal cannula in place Neck Neck exam: Present normal inspection; Absent lymphadenopathy, tenderness or thyromegaly Respiratory Respiratory exam: Absent accessory muscle use, respiratory distress or wheezes Cardiovascular Cardiovascular exam: Present irregular rhythm; Absent JVD GI/Abdominal GI/Abdominal exam: Present normal bowel sounds and soft; Absent organomegaly or tenderness Extremities Exam Extremities exam: Present full ROM, joint swelling and normal capillary refill; Absent normal inspection or tenderness Neurological Exam Neurological exam: Present alert, CN II-XII intact and oriented X3; Absent motor sensory deficit Psychiatric Psychiatric exam: Present normal affect and normal mood; Absent anxious or depressed Skin Skin exam: Present abrasion, dry, erythema, rash and warm; Absent intact DATA Data Completed and Pending Labs: Labs from last 24 hours 10/16/22 10/16/22 10/15/22 06:12 06:12 20:52 WBC 16.9 H RBC 3.83 Hgb 10.9 L Hct 33.6 L POC Hct MCV 87.7 MCH 28.5 MCHC 32.4 RDW 14.6 H Plt Count 151 MPV 10.9 Immature Gran % (Auto) 1.3 H Neut % (Auto) 86.2 H Lymph % (Auto) 6.3 L Grady % (Auto) 4.3 Eos % (Auto) 1.5 Baso % (Auto) 0.4 Lymph # (Auto) 1.06 L Grady # (Auto) 0.73 Eos # (Auto) 0.26 Baso # (Auto) 0.06 Immature Gran # 0.22 H Absolute Neutrophils 14.55 H D-Dimer POC VBG pH POC VBG pCO2 at Temp POC VBG pO2 POC VBG HCO3 POC VBG Total CO2 POC Venous O2 Sat POC VBG Base Excess VBG Lactic Acid POC Sodium Sodium 132 L POC Potassium Potassium 4.5 POC Chloride Chloride 102 Carbon Dioxide 20 L POC Total CO2 Anion Gap 10.0 POC BUN BUN 15 Creatinine 0.7 POC Creatinine GFR Calculation 83 Glucose 109 H POC Glucose Calcium 7.9 L POC WB Ioniz Calcium NT-Pro-B Natriuret Pep Procalcitonin 1.40 H POC Troponin I 10/15/22 10/15/22 10/15/22 20:50 14:32 14:29 WBC RBC Hgb Hct POC Hct 36.0 MCV MCH MCHC RDW Plt Count MPV Immature Gran % (Auto) Neut % (Auto) Lymph % (Auto) Grady % (Auto) Eos % (Auto) Baso % (Auto) Lymph # (Auto) Grady # (Auto) Eos # (Auto) Baso # (Auto) Immature Gran # Absolute Neutrophils D-Dimer POC VBG pH 7.42 POC VBG pCO2 at Temp 39.2 L POC VBG pO2 25 POC VBG HCO3 25.5 POC VBG Total CO2 27.0 POC Venous O2 Sat 48.0 POC VBG Base Excess 1.0 VBG Lactic Acid 0.8 POC Sodium 135 Sodium POC Potassium 4.0 Potassium POC Chloride 102 Chloride Carbon Dioxide POC Total CO2 24.0 Anion Gap POC BUN 21 H BUN Creatinine POC Creatinine 0.8 GFR Calculation Glucose POC Glucose 124 H Calcium POC WB Ioniz Calcium 1.07 L NT-Pro-B Natriuret Pep Procalcitonin POC Troponin I 0.04 10/15/22 10/15/22 10/15/22 14:20 14:20 14:20 WBC 21.3 H RBC 3.90 Hgb 10.8 L Hct 34.6 POC Hct MCV 88.7 MCH 27.7 MCHC 31.2 RDW 14.6 H Plt Count 169 MPV 10.5 Immature Gran % (Auto) 2.7 H Neut % (Auto) 90.1 H Lymph % (Auto) 4.0 L Grady % (Auto) 3.0 Eos % (Auto) 0 Baso % (Auto) 0.2 Lymph # (Auto) 0.86 L Grady # (Auto) 0.63 Eos # (Auto) 0.01 Baso # (Auto) 0.05 Immature Gran # 0.58 H Absolute Neutrophils 19.16 H D-Dimer 2.26 H POC VBG pH POC VBG pCO2 at Temp POC VBG pO2 POC VBG HCO3 POC VBG Total CO2 POC Venous O2 Sat POC VBG Base Excess VBG Lactic Acid POC Sodium Sodium POC Potassium Potassium POC Chloride Chloride Carbon Dioxide POC Total CO2 Anion Gap POC BUN BUN Creatinine POC Creatinine GFR Calculation Glucose POC Glucose Calcium POC WB Ioniz Calcium NT-Pro-B Natriuret Pep 1715.0 H Procalcitonin POC Troponin I A/P Narrative A/P Narrative: Assessment and Plans: 1. Bilateral lower extremities, right > left cellulitis with sepsis criteria: Observation med surg Serial lactic acid Procalcitonin Blood culture cbc w/ auto diff in the morning to trend WBC Rocephin Tylenol Oxycodone Morphine Wound care nurse referral Physical therapy 2. Obstructive sleep apnea: Continue CPAP at night while sleeping 3. h/o COPD, stable: DuoNEB NEB PRN wheezing 4. Atrial fibrillation: Diltiazem Xarelto 5. Essential hypertension: Diltiazem Losartan Lasix with KCl 6. Sjogren's Syndrome: Continue Pilocarpine GI ppx: not currently indicated DVT ppx: Xarelto Code status: Full Prognosis: guarded Disposition: observation med surg; PT Time Spent With Patient Time: Total time spent is greater than 50% in coordination of care (as documented) at patient's floor/unit and/or counseling patient: Initial: Total time with patient: 55 - 74 minutes
[2022-10-16] MEDS ORDERED: ONDANSETRON 4 MG/2 ML VIAL IV PRN (09:34)
[2022-10-16] MEDS ORDERED: oxyCODONE HCL 5 MG TABLET PO PRN (09:34)
[2022-10-16] MEDS ORDERED: cefTRIAXone 1 GM in DEXTROSE 5% IN WATER 50 ML IV SCH (09:34)
[2022-10-16] MEDS ORDERED: morphine 4 MG/ML VIAL IV PRN (09:34)
[2022-10-16] MEDS ORDERED: IPRATROPIUM/ALBUTEROL 3 ML AMPUL.NEB NEB PRN (09:34)
[2022-10-16] MEDS ORDERED: traZODone HCL 50 MG TABLET PO PRN (09:34)
[2022-10-16] MEDS ORDERED: Pilocarpine Hcl 5 mg tablet PO PRN (10:06)
[2022-10-16] MEDS: DILTIAZEM 180 MG CAP.XL.24H PO SCH (13:08)
[2022-10-16] MEDS: RIVAROXABAN 20 MG TABLET PO SCH (13:10)
[2022-10-16] MEDS: FUROSEMIDE 40 MG TABLET PO SCH (13:11)
[2022-10-16] MEDS: LOSARTAN 50 MG TABLET PO SCH (13:12)
[2022-10-16] MEDS: DOCUSATE SODIUM 100 MG CAPSULE PO SCH ×2 (13:13→22:01)
[2022-10-16] MEDS: cefTRIAXone 1 GM VIAL IV SCH (13:14)
[2022-10-16] MEDS: 0.9 % SODIUM CHLORIDE 10 ML SYRINGE IV SCH ×2 (13:21→22:01)
[2022-10-16] MEDS: SENNOSIDES 1 TABLET PO SCH (22:01)
[2022-10-17] MEDS: 0.9 % SODIUM CHLORIDE 10 ML SYRINGE IV SCH ×3 (06:03→20:01)
[2022-10-17] MEDS: ACETAMINOPHEN 325 MG TABLET PO PRN ×2 (06:06→20:02)
[2022-10-17 07:10] LABS: Basophils # (Auto) 0.05 K/mcL (0.00-0.30); Basophils % (Auto) 0.4 % (0.0-2.0); Eosinophils # (Auto) 0.36 K/mcL (0.00-0.70); Eosinophils % (Auto) 2.9 % (0.0-7.0); Hematocrit 34.4 % (34.1-44.9); Hemoglobin 10.7 g/dL (11.2-15.7); Lymphocytes # (Auto) 1.24 K/mcL (1.50-4.80); Lymphocytes % (Auto) 9.9 % (15.5-49.0); Mean Cell Volume 89.4 fL (80.0-100.0); Mean Corpuscular HGB Conc 31.1 g/dL (31.0-36.0); Mean Platelet Volume 10.5 fL (8.8-12.5); Monocytes # (Auto) 0.77 K/mcL (0.10-0.90); Monocytes % (Auto) 6.1 % (1.0-12.0); Neutrophils % (Auto) 77.5 % (38.0-78.0); Platelet Count 182 K/mcL (140-440); RBC 3.85 M/mcL (3.59-5.38); Red Cell Distribution Width 14.3 % (11.5-14.5); WBC 12.6 K/mcL (4.5-11.0)
[2022-10-17 07:12] LABS: ALT/SGPT 40 U/L (<40); AST/SGOT 52 U/L (<32); Albumin 2.6 gm/dL (3.2-5.2); Albumin/Globulin Ratio 0.7 (1.0-2.3); Alkaline Phosphatase 113 U/L (39-117); Bilirubin,Total 0.3 mg/dL (0.1-1.0); Blood Urea Nitrogen 10 mg/dL (8-23); Calcium 8.4 mg/dL (8.6-10.4); Carbon Dioxide 25 mmol/L (22-30); Chloride 103 mmol/L (96-108); Globulin 3.8 gm/dL (2.2-3.7); Glomerular Filtration Rate 83; Glucose 93 mg/dL (70-105)
[2022-10-17] MEDS: LOSARTAN 50 MG TABLET PO SCH (08:50)
[2022-10-17] MEDS: POTASSIUM CHLORIDE 20 MEQ TABLET PO SCH (08:51)
[2022-10-17] MEDS: FUROSEMIDE 40 MG TABLET PO SCH (08:51)
[2022-10-17] MEDS: MULTIVIT,THER IRON,CA,FA & MIN 1 TABLET PO SCH (08:52)
[2022-10-17] MEDS: DILTIAZEM 180 MG CAP.XL.24H PO SCH (08:52)
[2022-10-17] MEDS: RIVAROXABAN 20 MG TABLET PO SCH (08:53)
[2022-10-17] MEDS: cefTRIAXone 1 GM VIAL IV SCH (08:55)
[2022-10-17] MEDS: DOCUSATE SODIUM 100 MG CAPSULE PO SCH ×2 (09:45→19:30)
--- NOTE | 2022-10-17 09:45 | Internal Med Progress Note ---
SUBJECTIVE Subjective Patient information: Note initiated : 10/17/22 at 9:41 am Service Date, if different from initiated Date: [] Patient: Miriam Yanez 77 y/o F admitted on 10/16/22 for Weakness. Chief Complaint: [] Interval history: Ms. Yanez is a 77 year old F history of obstructive sleep apnea on CPAP, COPD, atrial fibrillation's, essential hypertensions, sodium syndrome, presenting with 4-day history of worsening leg pain, swelling, redness. She sees Dr. Marley for multiple chronic bilateral lower extremity skin ulcers. Over the past 4 days, she has noticed right greater than left bilateral lower extremities swelling, redness, and pain. She denies any additional trauma or injury. She is also feeling general body weakness but she had flu since last Tuesday. She denies any fever, chills, or diaphoresis. She denies any GI symptoms such as nausea vomiting diarrhea or constipations. Vital sign significant for mild tachycardia and tachypnea heart rate rate of breathing in the 100 and mid 20s, respectively. Labs significant for leukocytosis WBC 21.3, and procalcitonin level of 1.40. COVID, influenza a and B, and RSV PCR negative. Chest x-ray negative for pulmonary embolism. Also no consolidations seen. Extremity venous study no evidence of DVT. Admission request is called for cellulitis with sepsis criteria. 10/17: Afebrile overnight. Blood cultures no growth to date. Patient is c/o mild legs pain, right>left. Denies fever, chills, or sweating. Good appetite. Good energy level. Continue Rocephin while waiting for culture results. Wound care referral. Physical therapy evaluation and treatment. Constitutional Vitals: Vital Signs Temp Pulse Resp BP Pulse Ox O2 Del Method O2 Flow Rate 36.6 C 74 18 153/63 95 CPAP 2 10/17/22 08:00 10/17/22 08:00 10/17/22 08:00 10/17/22 08:00 10/17/22 04:00 10/17/22 08:00 10/17/22 00:00 Period Temp Pulse Resp BP Sys/Bowen Pulse Ox O2 Del Method O2 Flow Rate Last 24 Hr 36.6 C-36.9 C 68-80 16-20 144-173/52-67 94-98 CPAP-Room Air, CPAP 2-2 Intake and Output 10/16/22 10/17/22 10/17/22 19:59 03:59 11:59 Intake Total 300 240 Output Total 2 1 Balance 298 -1 240 Weight 143.023 kg Intake & Output: Intake & Output 10/16/22 10/17/22 10/17/22 19:59 03:59 11:59 Intake Total 300 240 Output Total 2 1 Balance 298 -1 240 Weight 143.023 kg Intake: Oral 300 240 Output: # of times incontinent of urine 2 1 Other: Meal Lunch Percent of Meal Consumed 100% Feeding Ability Assist with Tray Set Up Stool Size Moderate Stool Color Brown Stool Consistency Liquid # of times incontinent of 2 Bowels Head Head exam: Present atraumatic and normal inspection Eye Eye exam: Present normal appearance ENT ENT exam: Present mucous membranes moist, normal exam and normal external ear exam Neck Neck exam: Present normal inspection Respiratory Respiratory exam: Present normal respiratory exam Cardiovascular Cardiovascular exam: Present irregular rhythm GI/Abdominal GI/Abdominal exam: Present normal bowel sounds Back Exam Back exam: Present normal inspection Neurological Exam Neurological exam: Present alert and oriented X3 Skin Skin exam: Present erythema, rash and warm; Absent intact Additional comments: Multiple bilateral leg ulcers with wound dressings OBJ DATA Labs CBC & Chem 7: 10/17/22 05:52 10/17/22 05:52 Labs: Abnormal Lab Results 10/17/22 10/17/22 10/16/22 05:52 05:52 06:12 WBC 12.6 H Hgb 10.7 L Hct RDW Immature Gran % (Auto) 3.2 H Neut % (Auto) Lymph % (Auto) 9.9 L Lymph # (Auto) 1.24 L Immature Gran # 0.40 H Absolute Neutrophils 9.75 H D-Dimer POC VBG pCO2 at Temp Sodium 132 L Carbon Dioxide 20 L POC BUN Glucose 109 H POC Glucose Calcium 8.4 L 7.9 L POC WB Ioniz Calcium AST 52 H ALT 40 H NT-Pro-B Natriuret Pep Albumin 2.6 L Globulin 3.8 H Albumin/Globulin Ratio 0.7 L Procalcitonin 10/16/22 10/15/22 10/15/22 06:12 20:52 20:50 WBC 16.9 H Hgb 10.9 L Hct 33.6 L RDW 14.6 H Immature Gran % (Auto) 1.3 H Neut % (Auto) 86.2 H Lymph % (Auto) 6.3 L Lymph # (Auto) 1.06 L Immature Gran # 0.22 H Absolute Neutrophils 14.55 H D-Dimer POC VBG pCO2 at Temp 39.2 L Sodium Carbon Dioxide POC BUN Glucose POC Glucose Calcium POC WB Ioniz Calcium AST ALT NT-Pro-B Natriuret Pep Albumin Globulin Albumin/Globulin Ratio Procalcitonin 1.40 H 10/15/22 10/15/22 10/15/22 14:29 14:20 14:20 WBC Hgb Hct RDW Immature Gran % (Auto) Neut % (Auto) Lymph % (Auto) Lymph # (Auto) Immature Gran # Absolute Neutrophils D-Dimer 2.26 H POC VBG pCO2 at Temp Sodium Carbon Dioxide POC BUN 21 H Glucose POC Glucose 124 H Calcium POC WB Ioniz Calcium 1.07 L AST ALT NT-Pro-B Natriuret Pep 1715.0 H Albumin Globulin Albumin/Globulin Ratio Procalcitonin 10/15/22 14:20 WBC 21.3 H Hgb 10.8 L Hct RDW 14.6 H Immature Gran % (Auto) 2.7 H Neut % (Auto) 90.1 H Lymph % (Auto) 4.0 L Lymph # (Auto) 0.86 L Immature Gran # 0.58 H Absolute Neutrophils 19.16 H D-Dimer POC VBG pCO2 at Temp Sodium Carbon Dioxide POC BUN Glucose POC Glucose Calcium POC WB Ioniz Calcium AST ALT NT-Pro-B Natriuret Pep Albumin Globulin Albumin/Globulin Ratio Procalcitonin Meds: Medications Acetaminophen (Acetaminophen 325 Mg Tablet) 650 mg PO Q6HP PRN; Protocol PRN Reason: Per Pain Protocol/Fever > 101 Last Admin: 10/17/22 06:06 Dose: 650 mg Albuterol/Ipratropium (Ipratropium/Albuterol 3 Ml Ampul.Neb) 3 ml NEB Q4HRT PRN PRN Reason: Wheezing Alendronate Sodium (Alendronate Sodium 70 Mg Tablet) 70 mg PO Q7D [facility] Ceftriaxone Sodium (Ceftriaxone 1 Gm Vial) 1 gm IV Q24H [facility] Last Admin: 10/17/22 08:55 Dose: 1 gm Diltiazem HCl (Diltiazem 180 Mg Cap.Xl.24h) 180 mg PO QDAY [facility] Last Admin: 10/17/22 08:52 Dose: 180 mg Docusate Sodium (Docusate Sodium 100 Mg Capsule) 100 mg PO BID [facility] Last Admin: 10/16/22 22:01 Dose: Not Given Furosemide (Furosemide 40 Mg Tablet) 40 mg PO QDAY [facility] Last Admin: 10/17/22 08:51 Dose: 40 mg Iron Carb/Multivit/[place]/Folic Acid (Multivit,Ther Iron,Ca,Fa & Min 1 Tablet) 1 tab PO DAILY [facility] Last Admin: 10/17/22 08:52 Dose: 1 tab Losartan Potassium (Losartan 50 Mg Tablet) 50 mg PO QDAY [facility] Last Admin: 10/17/22 08:50 Dose: 50 mg Morphine Sulfate (Morphine 4 Mg/Ml Vial) 4 mg IV Q4HP PRN; Protocol PRN Reason: Per Pain Protocol Ondansetron HCl (Ondansetron 4 Mg/2 Ml Vial) 4 mg IV Q6HP PRN PRN Reason: Nausea And Vomiting Oxycodone HCl (Oxycodone Hcl 5 Mg Tablet) 5 mg PO Q4HP PRN; Protocol PRN Reason: Per Pain Protocol Pilocarpine Hcl 5 Mg (Tablet) 5 dose PO TIDP PRN PRN Reason: sjorgens Potassium Chloride (Potassium Chloride 20 Meq Tablet) 20 meq PO QAMCC [facility] Last Admin: 10/17/22 08:51 Dose: 20 meq Rivaroxaban (Rivaroxaban 20 Mg Tablet) 20 mg PO QDAY [facility] Last Admin: 10/17/22 08:53 Dose: 20 mg Senna (Sennosides 1 Tablet) 2 tab PO HS [facility] Last Admin: 10/16/22 22:01 Dose: Not Given Sodium Chloride (0.9 % Sodium Chloride 10 Ml Syringe) 10 ml IV Q8 [facility] Last Admin: 10/17/22 06:03 Dose: 10 ml Trazodone HCl (Trazodone Hcl 50 Mg Tablet) 25 mg PO HSP PRN PRN Reason: Insomnia A/P Narrative A/P Narrative: Assessment and Plans: 1. Bilateral lower extremities, right > left cellulitis with sepsis criteria: Observation med surg Serial lactic acid 0.8 Procalcitonin 1.40 Blood culture, no growth to date cbc w/ auto diff in the morning to trend WBC Rocephin Tylenol Oxycodone Morphine Wound care nurse referral Physical therapy 2. Obstructive sleep apnea: Continue CPAP at night while sleeping 3. h/o COPD, stable: DuoNEB NEB PRN wheezing 4. Atrial fibrillation: Diltiazem Xarelto 5. Essential hypertension: Diltiazem Losartan Lasix with KCl 6. Sjogren's Syndrome: Continue Pilocarpine GI ppx: not currently indicated DVT ppx: Xarelto Code status: Full Prognosis: guarded Disposition: observation med surg; PT Time Spent With Patient Time: Total time spent is greater than 50% in coordination of care (as documented) at patient's floor/unit and/or counseling patient: Subsequent: Total time with patient: 35 - 49 minutes QUALITY VTE Deep Vein Thrombosis/Pulmonary Embolism Present on Admission: Yes
[2022-10-17] MEDS: SENNOSIDES 1 TABLET PO SCH (19:31)
[2022-10-18] MEDS: ACETAMINOPHEN 325 MG TABLET PO PRN ×2 (04:03→14:14)
[2022-10-18] MEDS: 0.9 % SODIUM CHLORIDE 10 ML SYRINGE IV SCH ×2 (04:04→14:16)
[2022-10-18 06:40] LABS: Basophils # (Auto) 0.04 K/mcL (0.00-0.30); Basophils % (Auto) 0.4 % (0.0-2.0); Eosinophils # (Auto) 0.41 K/mcL (0.00-0.70); Eosinophils % (Auto) 4.1 % (0.0-7.0); Hematocrit 36.3 % (34.1-44.9); Hemoglobin 11.3 g/dL (11.2-15.7); Lymphocytes # (Auto) 1.13 K/mcL (1.50-4.80); Lymphocytes % (Auto) 11.4 % (15.5-49.0); Mean Corpuscular HGB Conc 31.1 g/dL (31.0-36.0); Mean Platelet Volume 10.5 fL (8.8-12.5); Monocytes # (Auto) 0.63 K/mcL (0.10-0.90); Monocytes % (Auto) 6.4 % (1.0-12.0); Platelet Count 215 K/mcL (140-440); RBC 4.08 M/mcL (3.59-5.38); Red Cell Distribution Width 14.5 % (11.5-14.5); WBC 9.9 K/mcL (4.5-11.0)
[2022-10-18 06:55] LABS: ALT/SGPT 47 U/L (<40); AST/SGOT 48 U/L (<32); Albumin 2.6 gm/dL (3.2-5.2); Albumin/Globulin Ratio 0.7 (1.0-2.3); Alkaline Phosphatase 108 U/L (39-117); Bilirubin,Total 0.2 mg/dL (0.1-1.0); Blood Urea Nitrogen 11 mg/dL (8-23); Calcium 8.5 mg/dL (8.6-10.4); Carbon Dioxide 24 mmol/L (22-30); Chloride 104 mmol/L (96-108); Globulin 3.5 gm/dL (2.2-3.7); Glomerular Filtration Rate 87; Glucose 101 mg/dL (70-105)
[2022-10-18] MEDS ORDERED: ALENDRONATE SODIUM 70 MG TABLET PO SCH (07:30)
[2022-10-18] MEDS: FUROSEMIDE 40 MG TABLET PO SCH (08:34)
[2022-10-18] MEDS: LOSARTAN 50 MG TABLET PO SCH (08:34)
[2022-10-18] MEDS: DILTIAZEM 180 MG CAP.XL.24H PO SCH (08:34)
[2022-10-18] MEDS: POTASSIUM CHLORIDE 20 MEQ TABLET PO SCH (08:34)
[2022-10-18] MEDS: MULTIVIT,THER IRON,CA,FA & MIN 1 TABLET PO SCH (08:34)
[2022-10-18] MEDS: RIVAROXABAN 20 MG TABLET PO SCH (08:34)
[2022-10-18] MEDS: DOCUSATE SODIUM 100 MG CAPSULE PO SCH (08:35)
[2022-10-18 08:49] LABS: Neutrophils % (Auto) 70.6 % (38.0-78.0)
[2022-10-18] MEDS: cefTRIAXone 1 GM VIAL IV SCH (10:12)
--- NOTE | 2022-10-18 13:26 | Discharge Summary ---
Discharge Provider Provider IMPORTANT FOLLOW-UP INFORMATION FOR PCP: Patient information: Note initiated : 10/18/22 at 1:23 pm Service Date, if different from initiated Date: [] Patient: Miriam Yanez 77 y/o F admitted on 10/16/22 for Weakness. Chief Complaint: [] Date of admission: 10/16/22 09:30 Discharge date: 10/18/22 Primary care physician: Gopal Michael MD Attending physician on admission: Tom Forte Consults: 10/16/22 Consult to Physician [CONS] Stat Comment: Consulting Provider: Tom Forte Reason For Exam: Physician to Consult Attending physician on discharge: Tom Forte COURSE Hospital Course Hospital course: Ms. Yanez is a 77 year old F history of obstructive sleep apnea on CPAP, COPD, atrial fibrillation's, essential hypertensions, sodium syndrome, presenting with 4-day history of worsening leg pain, swelling, redness. She sees Dr. Marley for multiple chronic bilateral lower extremity skin ulcers. Over the past 4 days, she has noticed right greater than left bilateral lower extremities swelling, redness, and pain. She denies any additional trauma or injury. She is also feeling general body weakness but she had flu since last Tuesday. She denies any fever, chills, or diaphoresis. She denies any GI symptoms such as nausea vomiting diarrhea or constipations. Vital sign sign ificant for mild tachycardia and tachypnea heart rate rate of breathing in the 100 and mid 20s, respectively. Labs significant for leukocytosis WBC 21.3, and procalcitonin level of 1.40. COVID, influenza a and B, and RSV PCR negative. Chest x-ray negative for pulmonary embolism. Also no consolidations seen. Extremity venous study no evidence of DVT. Admission request is called for cellulitis with sepsis criteria. 10/17: Afebrile overnight. Blood cultures no growth to date. Patient is c/o mild legs pain, right>left. Denies fever, chills, or sweating. Good appetite. Good energy level. Continue Rocephin while waiting for culture results. Wound care referral. Physical therapy evaluation and treatment. 10/18: Reached clinical stability, decision made to discharge to [facility] as per physical therapy recommendation. Rx oral antibiotics given. All questions were answered prior to patient being physically discharged. Discharge diagnosis: Cellulitis of bilateral lower extremities Time Spent with Patient Time attestation: Total time spent providing and/or coordinating discharge services: Time spent: Less than 30 minutes EXAM Constitutional Vitals: Temp Pulse Resp BP Pulse Ox O2 Del Method O2 Flow Rate 36.4 C 80 20 153/93 98 0 10/18/22 07:50 10/18/22 07:50 10/18/22 07:50 10/18/22 07:50 10/18/22 07:50 10/18/22 07:50 10/17/22 08:00 General appearance: cooperative and no acute distress Head Head exam: Present atraumatic and normocephalic Eye Eye exam: Present EOMI and PERRL ENT ENT exam: Present mucous membranes moist, normal exam and normal external ear exam Neck Neck exam: Present normal inspection; Absent lymphadenopathy, tenderness or thyromegaly Respiratory Respiratory exam: Absent accessory muscle use, respiratory distress or wheezes Cardiovascular Cardiovascular exam: Present irregular rhythm; Absent JVD GI/Abdominal GI/Abdominal exam: Present normal bowel sounds and soft; Absent organomegaly or tenderness Extremities Exam Extremities exam: Present full ROM and normal capillary refill; Absent normal inspection or tenderness Additional comments: Erythematic rash right>left lower extremities Multiple ulcers on both lower extremities covered by wound dressings Neurological Exam Neurological exam: Present alert, CN II-XII intact and oriented X3; Absent motor sensory deficit Psychiatric Psychiatric exam: Present normal affect and normal mood; Absent anxious or depressed Skin Skin exam: Present dry, erythema and rash; Absent intact Additional comments: Multiple ulcers covered by wound dressings Discharge Data Data Completed and Pending Labs on day of discharge: Labs from last 24 hours 10/18/22 10/18/22 05:46 05:46 WBC 9.9 RBC 4.08 Hgb 11.3 Hct 36.3 MCV 89.0 MCH 27.7 MCHC 31.1 RDW 14.5 Plt Count 215 MPV 10.5 Immature Gran % (Auto) 7.1 H Neut % (Auto) 70.6 Lymph % (Auto) 11.4 L Wright % (Auto) 6.4 Eos % (Auto) 4.1 Baso % (Auto) 0.4 Lymph # (Auto) 1.13 L Wright # (Auto) 0.63 Eos # (Auto) 0.41 Baso # (Auto) 0.04 Immature Gran # 0.70 H Absolute Neutrophils 7.00 Sodium 136 Potassium 3.5 Chloride 104 Carbon Dioxide 24 Anion Gap 8.0 BUN 11 Creatinine 0.6 GFR Calculation 87 Glucose 101 Calcium 8.5 L Total Bilirubin 0.2 AST 48 H ALT 47 H Alkaline Phosphatase 108 Total Protein 6.1 Albumin 2.6 L Globulin 3.5 Albumin/Globulin Ratio 0.7 L Preliminary micro results at discharge 10/15/22 20:50 Blood Culture - Preliminary Blood 10/15/22 20:47 Blood Culture - Preliminary Blood Discharge Plan Patient/Caregiver Discharge Instructions Activity: increase activity as tolerated Diet: Regular Diet Prescriptions: New oxycodone 5 mg Tablet 5 mg PO Q4-6HP PRN (Reason: Per Pain Protocol) Qty: 10 0RF Continued Xarelto 20 mg tablet 20 mg PO QDAY Qty: 90 1RF Rx Instructions: must administer with evening meal diltiazem HCl [Cartia XT] 180 mg capsule,extended release 24hr 180 mg PO QDAY Qty: 90 1RF losartan [Cozaar] 50 mg tablet 50 mg PO QDAY Qty: 90 1RF pilocarpine HCl 5 mg tablet 5 mg PO TID PRN (Reason: sjorgens) Qty: 270 0RF furosemide [Lasix] 40 mg tablet 40 mg PO QDAY Qty: 90 1RF potassium chloride 20 mEq tablet extended release 20 meq PO QDAY Qty: 90 1RF (DME) CPAP Machine and Supplies Qty: 1 0RF Dose Instruction: As directed Rx Instructions: As directed multivitamin 1 EACH tablet 1 tab PO DAILY alendronate 70 mg tablet 70 mg PO WEEKLY Rx Instructions: TAKE 1 TABLET BY MOUTH EVERY WEEK on mondays Follow Up Plan Follow up with: David Marley MD [Physician] - Gopal Michael MD [Primary Care Provider] - Patient Disposition: Xfer SNF Rehab Potential: Good I certify that the patient requires SNF services: Yes Overall status at discharge: patient is progressing back to baseline Discharge Orders: Discharge Order (Routine); Ordered 10/18/22 Ordered By: Tom THIBODEAUX VTE Deep Vein Thrombosis/Pulmonary Embolism Present on Admission: Yes
== END 2022-10-18 14:30 ==
LOC: ED 13:45 → INTOOBSV 10-16 09:30 → MEDSUR 10-16 09:30
PROVIDERS: ADMIT Internal Medicine; ATTEND Internal Medicine

== ENCOUNTER 2024-05-22 10:48 | Inpatient (IN) ==
[2024-05-22] MEDS: 0.9 % SODIUM CHLORIDE 1,780 ML IV ONE (11:10)
[2024-05-22 12:00] LABS: INR 1.5 (0.9-1.1)
[2024-05-22] MEDS: VANCOMYCIN 1,000 MG in 0.9 % SODIUM CHLORIDE 250 ML IV ONE (12:02)
[2024-05-22 12:07] LABS: Basophils # (Auto) 0.04 K/mcL (0.00-0.30); Basophils % (Auto) 0.1 % (0.0-2.0); Eosinophils # (Auto) 0 K/mcL (0.00-0.70); Eosinophils % (Auto) 0 % (0.0-7.0); Hemoglobin 12.9 g/dL (11.2-15.7); Lymphocytes # (Auto) 1.64 K/mcL (1.50-4.80); Lymphocytes % (Auto) 4.4 % (15.5-49.0); Mean Cell Volume 93.1 fL (80.0-100.0); Mean Corpuscular HGB Conc 30.7 g/dL (31.0-36.0); Monocytes # (Auto) 1.38 K/mcL (0.10-0.90); Monocytes % (Auto) 3.7 % (1.0-12.0); Neutrophils % (Auto) 86.2 % (38.0-78.0); Platelet Count 182 K/mcL (140-440); RBC 4.51 M/mcL (3.59-5.38); Red Cell Distribution Width 16.1 % (11.5-14.5); WBC 37.4 K/mcL (4.5-11.0)
[2024-05-22 12:07] LABS: Appearance,Urine Cloudy (Clear); Bacteria,Urine Many /hpf (0); Bilirubin,Urine Negative (Negative); Color,Urine Yellow; Culture Indicated,Urine Yes; Glucose,Urine (UA) Negative (Negative); Ketones,Urine Trace mg/dL (Negative); Leukocyte Esterase,Urine Small /uL (Negative); Nitrate,Urine Positive (Negative); PH,Urine 5.5 (5.0-9.0); Protein,Urine 30 mg/dL (Negative); Urine Blood Large ery/mcL (Negative); Urine RBC 6 /hpf (0-3); Urine Squamous Epithelial Cell 0 /hpf (0-4); Urine WBC > 182 /hpf (0-4); Urobilinogen,Urine Normal
[2024-05-22] MEDS: PIPERACILLIN SODIUM/TAZOBACTAM 3.375 GM in DEXTROSE 5% IN WATER 50 ML IV ONE (12:14)
[2024-05-22] MEDS: VANCOMYCIN 1,500 MG in 0.9 % SODIUM CHLORIDE 500 ML IV SCH (12:33)
[2024-05-22 12:51] LABS: ALT/SGPT 77 U/L (<40); AST/SGOT 70 U/L (<32); Albumin 3.3 gm/dL (3.2-5.2); Albumin/Globulin Ratio 1.3 (1.0-2.3); Alkaline Phosphatase 72 U/L (39-117); Bilirubin,Total 0.9 mg/dL (0.1-1.0); Blood Urea Nitrogen 34 mg/dL (8-23); Calcium 8.6 mg/dL (8.6-10.4); Carbon Dioxide 19 mmol/L (22-30); Chloride 99 mmol/L (96-108); Globulin 2.6 gm/dL (2.2-3.7); Glomerular Filtration Rate 26; Glucose 111 mg/dL (70-105); Potassium 4.2 mmol/L (3.3-5.1); Sodium 138 mmol/L (133-145)
[2024-05-22] MEDS: 0.9 % SODIUM CHLORIDE 250 ML ONE ×2 (14:31→14:32)
[2024-05-22] MEDS: 0.9 % SODIUM CHLORIDE 250 ML IV SCH ×3 (14:32→16:10)
[2024-05-22] MEDS: NOREPINEPHRINE BITARTRATE 16 MG in 0.9 % SODIUM CHLORIDE 234 ML IV SCH (14:32)
[2024-05-22] MEDS: NOREPINEPHRINE 250 ML IV SCH (14:44)
[2024-05-22] MEDS ORDERED: SENNOSIDES 1 TABLET PO PRN (16:11)
[2024-05-22] MEDS ORDERED: VANCOMYCIN PER PHARMACY IV SCH (16:11)
[2024-05-22] MEDS: 0.9 % SODIUM CHLORIDE 1,000 ML IV SCH (16:47)
[2024-05-22] MEDS: REMDESIVIR 200 MG in 0.9 % SODIUM CHLORIDE 250 ML IV ONE (16:48)
[2024-05-22] MEDS: ONDANSETRON 4 MG/2 ML VIAL IV PRN (17:45)
[2024-05-22] MEDS: PIPERACILLIN SODIUM/TAZOBACTAM 4.5 GM in DEXTROSE 5% IN WATER 50 ML IV ONE (17:47)
[2024-05-22 20:50] LABS: ALT/SGPT 72 U/L (<40); AST/SGOT 60 U/L (<32); Albumin 3.2 gm/dL (3.2-5.2); Albumin/Globulin Ratio 1.1 (1.0-2.3); Alkaline Phosphatase 74 U/L (39-117); Bilirubin,Direct 0.4 mg/dL (<0.3); Blood Urea Nitrogen 36 mg/dL (8-23); Calcium 8.1 mg/dL (8.6-10.4); Carbon Dioxide 19 mmol/L (22-30); Chloride 103 mmol/L (96-108); Globulin 2.8 gm/dL (2.2-3.7); Glomerular Filtration Rate 39; Glucose 136 mg/dL (70-105); Lactate Dehydrogenase 218 U/L (135-225); Phosphorous 4.1 mg/dL (2.5-4.5); Potassium 4.2 mmol/L (3.3-5.1); Sodium 139 mmol/L (133-145); Triglycerides 92 mg/dL (<150); Uric Acid 5.9 mg/dL (2.5-8.0)
[2024-05-22] MEDS: HEPARIN 5,000 UNIT/ML VIAL SQ SCH (21:17)
[2024-05-22] MEDS: PIPERACILLIN SODIUM/TAZOBACTAM 4.5 GM in DEXTROSE 5% IN WATER 100 ML IV SCH (21:17)
[2024-05-22] MEDS: 0.9 % SODIUM CHLORIDE 10 ML SYRINGE IV SCH (22:00)
[2024-05-23 06:08] LABS: Basophils # (Auto) 0.02 K/mcL (0.00-0.30); Basophils % (Auto) 0.1 % (0.0-2.0); Eosinophils # (Auto) 0.01 K/mcL (0.00-0.70); Eosinophils % (Auto) 0 % (0.0-7.0); Hematocrit 41.7 % (34.1-44.9); Hemoglobin 12.7 g/dL (11.2-15.7); Lymphocytes # (Auto) 0.73 K/mcL (1.50-4.80); Lymphocytes % (Auto) 2.4 % (15.5-49.0); Mean Cell Volume 93.3 fL (80.0-100.0); Mean Corpuscular HGB Conc 30.5 g/dL (31.0-36.0); Mean Platelet Volume 9.9 fL (8.8-12.5); Monocytes # (Auto) 1.24 K/mcL (0.10-0.90); Neutrophils % (Auto) 91.6 % (38.0-78.0); Platelet Count 142 K/mcL (140-440); RBC 4.47 M/mcL (3.59-5.38); Red Cell Distribution Width 16.4 % (11.5-14.5); WBC 30.9 K/mcL (4.5-11.0)
[2024-05-23 06:25] LABS: ALT/SGPT 57 U/L (<40); AST/SGOT 49 U/L (<32); Albumin 2.9 gm/dL (3.2-5.2); Alkaline Phosphatase 71 U/L (39-117); Bilirubin,Direct 0.3 mg/dL (<0.3); Bilirubin,Total 0.9 mg/dL (0.1-1.0); Blood Urea Nitrogen 29 mg/dL (8-23); Calcium 7.9 mg/dL (8.6-10.4); Carbon Dioxide 23 mmol/L (22-30); Chloride 106 mmol/L (96-108); Globulin 2.9 gm/dL (2.2-3.7); Glomerular Filtration Rate 53; Glucose 117 mg/dL (70-105); Lactate Dehydrogenase 230 U/L (135-225); Phosphorous 3.3 mg/dL (2.5-4.5); Sodium 141 mmol/L (133-145); Triglycerides 74 mg/dL (<150); Uric Acid 4.3 mg/dL (2.5-8.0)
[2024-05-23] MEDS: VANCOMYCIN 1,500 MG in 0.9 % SODIUM CHLORIDE 500 ML IV SCH (09:51)
[2024-05-23] MEDS: REMDESIVIR 100 MG in 0.9 % SODIUM CHLORIDE 250 ML IV SCH (12:09)
[2024-05-23] MEDS: HYDROCORTISONE SOD SUCC 100 MG VIAL IV ONE (13:03)
[2024-05-23] MEDS: HYDROCORTISONE SOD SUCC 100 MG VIAL IV SCH (17:10)
[2024-05-23] MEDS: LOPERAMIDE 2 MG CAPSULE PO PRN (17:10)
[2024-05-23] MEDS: RIVAROXABAN 20 MG TABLET PO SCH (17:10)
[2024-05-24 05:52] LABS: Basophils # (Auto) 0 K/mcL (0.00-0.30); Basophils % (Auto) 0 % (0.0-2.0); Eosinophils # (Auto) 0.01 K/mcL (0.00-0.70); Eosinophils % (Auto) 0.1 % (0.0-7.0); Hematocrit 34.4 % (34.1-44.9); Hemoglobin 10.6 g/dL (11.2-15.7); Lymphocytes # (Auto) 0.36 K/mcL (1.50-4.80); Lymphocytes % (Auto) 1.9 % (15.5-49.0); Mean Cell Volume 93.7 fL (80.0-100.0); Mean Corpuscular HGB Conc 30.8 g/dL (31.0-36.0); Mean Platelet Volume 9.8 fL (8.8-12.5); Monocytes # (Auto) 0.59 K/mcL (0.10-0.90); Monocytes % (Auto) 3.2 % (1.0-12.0); Neutrophils % (Auto) 93.9 % (38.0-78.0); Platelet Count 108 K/mcL (140-440); RBC 3.67 M/mcL (3.59-5.38); Red Cell Distribution Width 16.2 % (11.5-14.5); WBC 18.7 K/mcL (4.5-11.0)
[2024-05-24 06:18] LABS: ALT/SGPT 33 U/L (<40); AST/SGOT 22 U/L (<32); Albumin 2.5 gm/dL (3.2-5.2); Alkaline Phosphatase 55 U/L (39-117); Bilirubin,Direct 0.2 mg/dL (<0.3); Bilirubin,Total 0.7 mg/dL (0.1-1.0); Blood Urea Nitrogen 18 mg/dL (8-23); Calcium 7.9 mg/dL (8.6-10.4); Carbon Dioxide 23 mmol/L (22-30); Chloride 107 mmol/L (96-108); Globulin 2.4 gm/dL (2.2-3.7); Glomerular Filtration Rate 92; Glucose 129 mg/dL (70-105); Lactate Dehydrogenase 142 U/L (135-225); Phosphorous 1.9 mg/dL (2.5-4.5); Potassium 3.6 mmol/L (3.3-5.1); Sodium 139 mmol/L (133-145); Triglycerides 56 mg/dL (<150); Uric Acid 2.4 mg/dL (2.5-8.0)
[2024-05-24] MEDS: FUROSEMIDE 40 MG TABLET PO SCH (08:43)
[2024-05-24] MEDS: METOPROLOL SUCCINATE 50 MG TAB.XL.24H PO SCH (08:43)
[2024-05-24] MEDS: LOSARTAN 50 MG TABLET PO SCH (08:43)
[2024-05-24] MEDS ORDERED: RIVAROXABAN 20 MG TABLET PO SCH (09:00)
[2024-05-24] MEDS: POTASSIUM PHOSPHATE 40 MEQ in DEXTROSE 5% IN WATER 500 ML IV SCH (17:05)
[2024-05-25 06:53] LABS: Basophils # (Auto) 0.01 K/mcL (0.00-0.30); Basophils % (Auto) 0.1 % (0.0-2.0); Eosinophils # (Auto) 0.02 K/mcL (0.00-0.70); Eosinophils % (Auto) 0.1 % (0.0-7.0); Hematocrit 38.7 % (34.1-44.9); Hemoglobin 11.3 g/dL (11.2-15.7); Lymphocytes # (Auto) 0.47 K/mcL (1.50-4.80); Lymphocytes % (Auto) 3.4 % (15.5-49.0); Mean Corpuscular HGB Conc 29.2 g/dL (31.0-36.0); Mean Platelet Volume 10.8 fL (8.8-12.5); Monocytes # (Auto) 0.52 K/mcL (0.10-0.90); Monocytes % (Auto) 3.7 % (1.0-12.0); Neutrophils % (Auto) 92.2 % (38.0-78.0); Platelet Count 118 K/mcL (140-440); RBC 3.99 M/mcL (3.59-5.38); Red Cell Distribution Width 16.2 % (11.5-14.5); WBC 13.9 K/mcL (4.5-11.0)
[2024-05-25] MEDS: HYDROCORTISONE SOD SUCC 100 MG VIAL IV SCH (08:38)
[2024-05-25] MEDS ORDERED: NOREPINEPHRINE 250 ML IV PRN (09:00)
[2024-05-25] MEDS: CALCIUM GLUCONATE 9.3 MEQ in DEXTROSE 5% IN WATER 50 ML IV ONE (09:35)
[2024-05-25 09:52] LABS: ALT/SGPT 26 U/L (<40); AST/SGOT 19 U/L (<32); Albumin 2.7 gm/dL (3.2-5.2); Albumin/Globulin Ratio 1.1 (1.0-2.3); Alkaline Phosphatase 62 U/L (39-117); Bilirubin,Direct < 0.2 mg/dL (0-0.3); Bilirubin,Total 0.4 mg/dL (0.1-1.0); Blood Urea Nitrogen 16 mg/dL (8-23); Calcium 8.2 mg/dL (8.6-10.4); Carbon Dioxide 24 mmol/L (22-30); Chloride 104 mmol/L (96-108); Globulin 2.5 gm/dL (2.2-3.7); Glomerular Filtration Rate 86; Glucose 126 mg/dL (70-105); Lactate Dehydrogenase 179 U/L (135-225); Phosphorous 2.1 mg/dL (2.5-4.5); Potassium 3.2 mmol/L (3.3-5.1); Sodium 138 mmol/L (133-145); Triglycerides 59 mg/dL (<150); Uric Acid 2.5 mg/dL (2.5-8.0)
[2024-05-25] MEDS: cefTRIAXone 2 GM in DEXTROSE 5% IN WATER 50 ML IV SCH (11:17)
[2024-05-25] MEDS: POTASSIUM CHLORIDE 20 MEQ TABLET PO SCH (11:18)
[2024-05-26 06:47] LABS: Basophils # (Auto) 0.01 K/mcL (0.00-0.30); Basophils % (Auto) 0.1 % (0.0-2.0); Eosinophils # (Auto) 0.01 K/mcL (0.00-0.70); Eosinophils % (Auto) 0.1 % (0.0-7.0); Hematocrit 35.2 % (34.1-44.9); Hemoglobin 11.3 g/dL (11.2-15.7); Lymphocytes # (Auto) 0.45 K/mcL (1.50-4.80); Lymphocytes % (Auto) 4.7 % (15.5-49.0); Mean Cell Volume 90.7 fL (80.0-100.0); Mean Corpuscular HGB Conc 32.1 g/dL (31.0-36.0); Mean Platelet Volume 9.7 fL (8.8-12.5); Monocytes # (Auto) 0.45 K/mcL (0.10-0.90); Monocytes % (Auto) 4.7 % (1.0-12.0); Neutrophils % (Auto) 89.6 % (38.0-78.0); Platelet Count 111 K/mcL (140-440); RBC 3.88 M/mcL (3.59-5.38); Red Cell Distribution Width 15.5 % (11.5-14.5); WBC 9.6 K/mcL (4.5-11.0)
[2024-05-26 07:10] LABS: ALT/SGPT 29 U/L (<40); AST/SGOT 23 U/L (<32); Albumin 2.5 gm/dL (3.2-5.2); Alkaline Phosphatase 61 U/L (39-117); Bilirubin,Direct < 0.2 mg/dL (0-0.3); Bilirubin,Total 0.3 mg/dL (0.1-1.0); Blood Urea Nitrogen 18 mg/dL (8-23); Calcium 8.1 mg/dL (8.6-10.4); Carbon Dioxide 26 mmol/L (22-30); Chloride 104 mmol/L (96-108); Globulin 2.5 gm/dL (2.2-3.7); Glomerular Filtration Rate 86; Glucose 127 mg/dL (70-105); Lactate Dehydrogenase 185 U/L (135-225); Phosphorous 2.8 mg/dL (2.5-4.5); Potassium 3.4 mmol/L (3.3-5.1); Sodium 137 mmol/L (133-145); Triglycerides 72 mg/dL (<150); Uric Acid 3.2 mg/dL (2.5-8.0)
[2024-05-26] MEDS: POTASSIUM CHLORIDE 20 MEQ TABLET PO ONE (07:50)
[2024-05-26] MEDS ORDERED: cefTRIAXone 1 GM VIAL IV SCH (09:00)
[2024-05-26] MEDS: NYSTATIN POWDER BOTTLE 15GM TOPICAL SCH (14:43)
[2024-05-26] MEDS ORDERED: IOPAMIDOL 100 ML BOTTLE IV ONE (19:12)
[2024-05-27] MEDS: DOXYCYCLINE 100 MG in DEXTROSE 5% IN WATER 100 ML IV SCH (00:13)
[2024-05-27] MEDS: DEXTROSE 5% IN WATER 100 ML IV ONE (00:13)
[2024-05-27] MEDS: CEFDINIR 300 MG CAPSULE PO SCH (21:07)
[2024-05-28] MEDS: predniSONE 20 MG TABLET PO SCH (07:10)
[2024-05-28 08:38] LABS: Basophils # (Auto) 0.03 K/mcL (0.00-0.30); Basophils % (Auto) 0.3 % (0.0-2.0); Eosinophils # (Auto) 0.03 K/mcL (0.00-0.70); Eosinophils % (Auto) 0.3 % (0.0-7.0); Hematocrit 41.4 % (34.1-44.9); Hemoglobin 13.1 g/dL (11.2-15.7); Lymphocytes # (Auto) 0.79 K/mcL (1.50-4.80); Lymphocytes % (Auto) 8.5 % (15.5-49.0); Mean Cell Volume 89.2 fL (80.0-100.0); Mean Corpuscular HGB Conc 31.6 g/dL (31.0-36.0); Mean Platelet Volume 10.2 fL (8.8-12.5); Monocytes # (Auto) 0.38 K/mcL (0.10-0.90); Monocytes % (Auto) 4.1 % (1.0-12.0); Neutrophils % (Auto) 83.1 % (38.0-78.0); Platelet Count 168 K/mcL (140-440); RBC 4.64 M/mcL (3.59-5.38); Red Cell Distribution Width 15.7 % (11.5-14.5); WBC 9.3 K/mcL (4.5-11.0)
[2024-05-28 08:44] LABS: Blood Urea Nitrogen 19 mg/dL (8-23); Calcium 8.7 mg/dL (8.6-10.4); Carbon Dioxide 29 mmol/L (22-30); Chloride 100 mmol/L (96-108); Glomerular Filtration Rate 82; Glucose 154 mg/dL (70-105); Potassium 3.6 mmol/L (3.3-5.1); Sodium 140 mmol/L (133-145)
[2024-05-28] MEDS: DOXYCYCLINE HYCLATE 100 MG TABLET.ORL PO SCH (20:42)
[2024-05-29 06:06] LABS: Basophils # (Auto) 0.02 K/mcL (0.00-0.30); Basophils % (Auto) 0.2 % (0.0-2.0); Eosinophils # (Auto) 0.12 K/mcL (0.00-0.70); Eosinophils % (Auto) 1.3 % (0.0-7.0); Hematocrit 37.8 % (34.1-44.9); Lymphocytes # (Auto) 1.16 K/mcL (1.50-4.80); Lymphocytes % (Auto) 12.2 % (15.5-49.0); Mean Cell Volume 89.6 fL (80.0-100.0); Mean Corpuscular HGB Conc 31.7 g/dL (31.0-36.0); Mean Platelet Volume 10.3 fL (8.8-12.5); Monocytes # (Auto) 0.51 K/mcL (0.10-0.90); Monocytes % (Auto) 5.4 % (1.0-12.0); Neutrophils % (Auto) 75.8 % (38.0-78.0); Platelet Count 158 K/mcL (140-440); RBC 4.22 M/mcL (3.59-5.38); Red Cell Distribution Width 15.7 % (11.5-14.5); WBC 9.5 K/mcL (4.5-11.0)
[2024-05-29 06:38] LABS: Blood Urea Nitrogen 23 mg/dL (8-23); Calcium 8.3 mg/dL (8.6-10.4); Carbon Dioxide 31 mmol/L (22-30); Chloride 102 mmol/L (96-108); Glomerular Filtration Rate 82; Glucose 102 mg/dL (70-105); Potassium 3.1 mmol/L (3.3-5.1); Sodium 139 mmol/L (133-145)
[2024-05-29] MEDS: POTASSIUM CHLORIDE 20 MEQ PACKET PO ONE (07:50)
[2024-05-29] MEDS: MAGNESIUM SULFATE 1 GM/100 ML BAG IV ONE (07:51)
[2024-05-29 10:15] LABS: Potassium 3.6 mmol/L (3.3-5.1)
[2024-05-29 13:43] VITALS: TEMP 97.6
[2024-05-29 14:33] VITALS: O2SAT 93
== END 2024-05-29 13:50 | DRG 871 ==
LOC: ED 10:48 → ICU 16:07
PROVIDERS: ADMIT Internal Medicine; ATTEND Student in an Organized Health Care Education/Training Program